=== PATIENT | male | born 1940 | race Caucasian/White ===

== ENCOUNTER 2023-07-04 14:16 | Emergency (ER) | payer OTHER, SELFPAY ==
[2023-07-04 14:18] VITALS: BP 163/82
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
[2023-07-04 15:04] VITALS: BMI 25.9
[2023-07-04 15:32] LABS: % Basophils 0.7 % (0-2); % Eosinophils 2.1 % (0-6); % Immature Granulocytes 0.4 % (0-0.5); % Lymphocytes 12.2 % (20.5-51.1); % Neutrophils 74.6 % (42.2-75.2); Absolute Basophils 0.1 10^3/uL (0-0.2); Absolute Eosinophils 0.2 10^3/uL (0-0.7); Absolute Lymphocytes 1.1 10^3/uL (1.2-3.4); Absolute Monocytes 0.9 10^3/uL (0.1-0.6); Absolute Neutrophils 6.9 10^3/uL (1.4-6.5); Hematocrit 36.8 % (39.0-52.0); Hemoglobin 12.6 g/dL (13.0-18.0); Mean Corp Hgb Conc. 34.2 g/dL (33.0-37.0); Mean Corpuscular Hgb 30.7 pg (27.0-31.0); Mean Corpuscular Volume 89.5 fL (80.0-94.0); Mean Platelet Volume 9.9 fL (7.4-10.4); Nucleated Red Blood Cells % 0 % (-); Platelet Count 273 10^3/uL (130-400); Red Blood Cell Count 4.11 10^6/uL (4.70-6.10); Red Cell Dist. Width 14.8 % (11.5-14.5); White Blood Cell Count 9.2 10^3/uL (4.8-10.8)
[2023-07-04 15:39] LABS: ALT (SGPT) < 10 U/L (0-50); AST (SGOT) 28 U/L (17-59); Alkaline Phosphatase 100 U/L (38-126); Blood Urea Nitrogen 39 mg/dl (9-20); Calcium 9.6 mg/dl (8.4-10.2); Carbon Dioxide 28 mmol/L (22-30); Chloride 103 mmol/L (98-107); Estimated Creatinine Clearance 39 ml/min; Glucose 122 mg/dl (70-99); Potassium 4.2 mmol/L (3.5-5.1); Sodium 134 mmol/L (135-145); Total Protein 6.8 g/dl (6.3-8.2); eGFR 45.91
[2023-07-04] MEDS: ANCEF 5 IV (16:50)
[2023-07-04 17:14] VITALS: BP 155/81
== END 2023-07-04 17:15 | disposition home or self-care (01) ==
LOC: EMR 14:16
PROVIDERS: Physician Assistant Medical; EMERGENCY PHYSICIAN Student in an Organized Health Care Education/Training Program; FAMILY PHYSICIAN Family Medicine
DX: S81.801A Unspecified open wound, right lower leg, initial encounter (principal); S81.802A Unspecified open wound, left lower leg, initial encounter; X58.XXXA Exposure to other specified factors, initial encounter; I48.91 Unspecified atrial fibrillation; I11.0 Hypertensive heart disease with heart failure; I50.9 Heart failure, unspecified
CPT/HCPCS: 99284; 96374; 73590; 80053; 85025

== ENCOUNTER → 2023-07-05 08:40 | Outpatient (REF) | payer OTHER, SELFPAY | LOC: WOUND 08:40 | PROVIDERS: ATTENDING PHYSICIAN Surgery; FAMILY PHYSICIAN Family Medicine | DX: I87.313 Chronic venous hypertension (idiopathic) with ulcer of bilateral lower extremity (principal); L97.311 Non-pressure chronic ulcer of right ankle limited to breakdown of skin; L97.821 Non-pressure chronic ulcer of other part of left lower leg limited to breakdown of skin; I87.2 Venous insufficiency (chronic) (peripheral); I73.9 Peripheral vascular disease, unspecified; I50.32 Chronic diastolic (congestive) heart failure; N18.32 Chronic kidney disease, stage 3b; I35.0 Nonrheumatic aortic (valve) stenosis; Z95.2 Presence of prosthetic heart valve | CPT/HCPCS: 97597; 97598; 99204 ==

== ENCOUNTER 2023-07-08 09:45 | Emergency (ER) | payer OTHER, SELFPAY ==
[2023-07-08 09:52] VITALS: BP 144/74
--- NOTE | 2023-07-08 10:33 | ED.GENMED ---
History of Present Illness
General
Chief Complaint: Skin Problem
Source: patient and family (Daughter)
Time Seen by Provider: 07/08/23 10:12
Travel History
Have you had any contact with someone who has COVID-19?: No
Do you have any symptoms of coronavirus? Fever > 100 degrees, chills, cough, shortness of breath, sore throat, loss of taste or smell, muscle aches, or headache?: No
History of Present Illness
History of Present Illness:
82-year-old male returns ongoing bilateral leg pain. Seen earlier in the week for same. Saw wound care this week also. On doxycycline 100 mg twice daily. Leg pain is moderate worse in the right leg but stable. No fever or chills. However no
improvement in the feel the redness and swelling to the right leg has progressed.
Past History
Past History
ED Past Medical History: Arrthythmia, CAD, Cancer, CHF, COPD, GERD, HTN, Hypercholesterolemia and Valvular disease
ED Past Surgical History: Cardiac, Orthopedic and Urological
Patient has exhibited threatening behavior?: No
Social History
Tobacco: Non-smoker
Alcohol: None
Drug: None
Personal:
Living: with family
Employment: Retired
Family History
Family History: Other (Noncontributory)
Review of Systems
Review of Systems
All Other Systems: Not applicable
Constitutional: Denies fever or chills
Respiratory: Reports no symptoms
Cardiac: Reports no symptoms
Phy Exam
Physical Exam
Physical Exam:
GENERAL: Alert and oriented in no apparent distress
EYE: Orbits normal.
NECK: Supple
CARDIAC: Regular rate and rhythm with mild midsystolic murmur
LUNGS: Clear breath sounds,normal
ABDOMEN: Soft, without focal tenderness or distention
NEUROLOGICAL: Alert and oriented , grossly non-focal
SKIN: Warm and dry, superficial skin breakdown to the right greater than left leg with surrounding erythema. Some drainage.
MUSCULOSKELETAL: Swelling to the lower leg right greater than left. Minimal on the left. Good distal pulses
PSYCH: Normal and appropriate interaction.
Course
Orders/Labs/Results
Orders:
Orders
07/08/23 10:24
US Periph Venous LOWER Ext [place] Urgent
Comment:
Reason For Exam: swelling/pain
07/08/23 10:25
IV Insert/Care/Rem.- Treatment PRN
07/08/23 11:30
Basic Metabolic Panel Urgent
Complete Blood Count/With Diff Urgent
07/08/23 13:44
CeFAZolin 1 GRAM [Ancef] 1 gram in 5 ml IV NOW
Abnormal Lab Results
07/08/23
11:30
RBC 4.32 L 10^6/uL
(4.70-6.10)
Hgb 12.9 L g/dL
(13.0-18.0)
Hct 37.9 L %
(39.0-52.0)
RDW 14.6 H %
(11.5-14.5)
Absolute Neuts (auto) 7.6 H 10^3/uL
(1.4-6.5)
Absolute Lymphs (auto) 1.0 L 10^3/uL
(1.2-3.4)
Absolute Monos (auto) 0.7 H 10^3/uL
(0.1-0.6)
Neutrophils % 80.0 H %
(42.2-75.2)
Lymphocytes % 10.3 L %
(20.5-51.1)
BUN 37 H mg/dl
(9-20)
Creatinine 1.5 H mg/dL
(0.7-1.3)
Glucose 142 H mg/dl
(70-99)
07/08/23 11:30
07/08/23 11:30
Vital Signs
Initial and Last Documented VS:
Initial Vital Signs
Temp Pulse Resp BP Pulse Ox
97.9 F 80 17 144/74 99
07/08/23 09:52 07/08/23 09:52 07/08/23 09:52 07/08/23 09:52 07/08/23 09:52
Last Documented Vital Signs
Temp Pulse Resp BP Pulse Ox
97.9 F 80 17 144/74 99
07/08/23 09:52 07/08/23 09:52 07/08/23 09:52 07/08/23 09:52 07/08/23 09:52
MDM/Problems Addressed
Differential Diagnosis Includes:
Progressive cellulitis versus DVT. Clinically not heart failure. Workup in progress
*Radiology
Radiology exam reviewed: radiology read reviewed (Negative ultrasound)
*Pulse Oximetry
Patient hypoxic: no
*Critical Care Note
Total Time (30-74mins, 75-104mins- exclusive of procedures): Not Applicable
Data Reviewed
Review of Other/Old Records Reveals: Labs and Records
Update Note
Update Note:
Stable labs. Discussed inpatient versus outpatient management. Clinically very reasonable to treat as an outpatient adding a second antibiotic. However inpatient was offered. Patient is not clinically septic or in any distress. This is very
localized. Some of this may not be even cellulitis but local inflammatory response. We will add Keflex to follow-up
ED Attending Note
-
Portions of this chart may have been created with voice recognition software.� Occasional wrong word or��sound alike� substitutions may have occurred due to the inherent limitations of voice recognition software.
Discharge Plan
Departure
Patient Disposition: Home (Routine Discharge)
Date of Disposition: 07/08/23
Time of Disposition: 13:38
Patient with high blood pressure during this ER visit?: Yes
Discharge Problem:
Bilateral leg wounds, Local cellulitis, Chronic renal insufficiency
Instructions: Wound Care (DC), Cellulitis (Skin Infection), Adult (DC)
Prescriptions:
New
cephalexin 500 mg capsule
500 mg PO TID 7 Days Qty: 21 0RF
No Action
simvastatin 10 MG tablet
10 mg PO HS
acetaminophen [Tylenol Arthritis Pain] 650 MG tablet extended release
650 mg PO DAILY
tamsulosin 0.4 MG capsule
0.4 mg PO Q48H
aspirin 81 mg Tablet,Delayed Release (Dr/Ec)
81 mg PO DAILY
cholecalciferol (vitamin D3) 50 mcg (2,000 unit) Capsule
50 mcg PO HS
duloxetine 30 mg Capsule,Delayed Release(Dr/Ec)
30 mg PO DAILY
torsemide 10 mg tablet
10 mg PO DAILY
gabapentin 400 mg Capsule
400 mg PO BID
nifedipine 30 mg Tablet Extended Release
30 mg PO DAILY 30 Days Qty: 30 1RF
doxycycline monohydrate 100 mg Tablet
100 mg PO BID
Patient Comments:
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
ferrous sulfate 325 mg (65 mg iron) Tablet
325 mg PO Q48H@1700
allopurinol 300 mg Tablet
300 mg PO QPM
Referrals:
Hamilton Leblanc Jr., DO [Family Provider] - Follow up in 2-3 days
Activity Restrictions/Additional Instructions:
Continue doxycycline start Keflex
Take a probiotic as discussed
Get wound rechecked this at the wound care center however if you have any concern that is becoming more progressive increased swelling increased drainage, fever chills or any other concerning symptoms please return immediately
Really try to keep the legs elevated
Interventions
Interventions:
*Risk Screen - Suicide Last Done: 07/08/23 09:53
*General Assessment Last Done: 07/08/23 09:53
*Neglect/Abuse Screening Last Done: 07/08/23 09:53
*ED COVID-19 Vaccine History Last Done: 07/08/23 09:53
ED-Skin Assessment Last Done: 07/08/23 12:23
Discharge Date and Time
Print Language: KENYAN
[2023-07-08 11:31] VITALS: BMI 25.4
[2023-07-08 11:43] LABS: % Basophils 0.7 % (0-2); % Immature Granulocytes 0.4 % (0-0.5); % Lymphocytes 10.3 % (20.5-51.1); % Monocytes 7.6 % (1.7-9.3); Absolute Basophils 0.1 10^3/uL (0-0.2); Absolute Eosinophils 0.1 10^3/uL (0-0.7); Absolute Monocytes 0.7 10^3/uL (0.1-0.6); Absolute Neutrophils 7.6 10^3/uL (1.4-6.5); Hematocrit 37.9 % (39.0-52.0); Hemoglobin 12.9 g/dL (13.0-18.0); Mean Corpuscular Hgb 29.9 pg (27.0-31.0); Mean Corpuscular Volume 87.7 fL (80.0-94.0); Mean Platelet Volume 9.5 fL (7.4-10.4); Nucleated Red Blood Cells % 0 % (-); Platelet Count 274 10^3/uL (130-400); Red Blood Cell Count 4.32 10^6/uL (4.70-6.10); Red Cell Dist. Width 14.6 % (11.5-14.5); White Blood Cell Count 9.4 10^3/uL (4.8-10.8)
[2023-07-08 12:05] LABS: Blood Urea Nitrogen 37 mg/dl (9-20); Calcium 9.7 mg/dl (8.4-10.2); Carbon Dioxide 24 mmol/L (22-30); Chloride 107 mmol/L (98-107); Estimated Creatinine Clearance 38 ml/min; Glucose 142 mg/dl (70-99); Sodium 137 mmol/L (135-145); eGFR 45.91
[2023-07-08 12:49] LABS: Potassium 4.2 mmol/L (3.5-5.1)
[2023-07-08] MEDS: ANCEF 5 IV (14:07)
[2023-07-08 14:39] VITALS: BP 150/72
== END 2023-07-08 14:40 | disposition home or self-care (01) ==
LOC: EMR 09:45
PROVIDERS: EMERGENCY PHYSICIAN Emergency Medicine; FAMILY PHYSICIAN Family Medicine
DX: L03.116 Cellulitis of left lower limb (principal); L03.115 Cellulitis of right lower limb; M79.604 Pain in right leg; M79.605 Pain in left leg; I13.0 Hypertensive heart and chronic kidney disease with heart failure and stage 1 through stage 4 chronic kidney disease, or unspecified chronic kidney disease; N18.9 Chronic kidney disease, unspecified; I50.9 Heart failure, unspecified; E78.00 Pure hypercholesterolemia, unspecified; K21.9 Gastro-esophageal reflux disease without esophagitis; J44.9 Chronic obstructive pulmonary disease, unspecified; I25.10 Atherosclerotic heart disease of native coronary artery without angina pectoris; I38 Endocarditis, valve unspecified; Z85.9 Personal history of malignant neoplasm, unspecified; Z79.82 Long term (current) use of aspirin; Z88.8 Allergy status to other drugs, medicaments and biological substances
CPT/HCPCS: 99284; 96374; 80048; 85025; 93970

== ENCOUNTER → 2023-07-12 09:41 | Outpatient (REF) | payer OTHER, SELFPAY | LOC: WOUND 09:41 | PROVIDERS: ATTENDING PHYSICIAN Surgery; FAMILY PHYSICIAN Family Medicine | DX: I87.313 Chronic venous hypertension (idiopathic) with ulcer of bilateral lower extremity (principal); L97.828 Non-pressure chronic ulcer of other part of left lower leg with other specified severity; L97.311 Non-pressure chronic ulcer of right ankle limited to breakdown of skin; I87.2 Venous insufficiency (chronic) (peripheral); I73.9 Peripheral vascular disease, unspecified; I50.32 Chronic diastolic (congestive) heart failure; N18.32 Chronic kidney disease, stage 3b; I35.0 Nonrheumatic aortic (valve) stenosis; I13.0 Hypertensive heart and chronic kidney disease with heart failure and stage 1 through stage 4 chronic kidney disease, or unspecified chronic kidney disease; Z95.2 Presence of prosthetic heart valve | CPT/HCPCS: 11042; 97597; 97598 ==

== ENCOUNTER → 2023-07-20 08:30 | Outpatient (REF) | payer OTHER, SELFPAY | LOC: WOUND 08:30 | PROVIDERS: ATTENDING PHYSICIAN Surgery; FAMILY PHYSICIAN Family Medicine | DX: I87.313 Chronic venous hypertension (idiopathic) with ulcer of bilateral lower extremity (principal); L97.828 Non-pressure chronic ulcer of other part of left lower leg with other specified severity; L97.311 Non-pressure chronic ulcer of right ankle limited to breakdown of skin; I87.2 Venous insufficiency (chronic) (peripheral); I73.9 Peripheral vascular disease, unspecified; I50.32 Chronic diastolic (congestive) heart failure; N18.32 Chronic kidney disease, stage 3b; I35.0 Nonrheumatic aortic (valve) stenosis; Z95.2 Presence of prosthetic heart valve | CPT/HCPCS: 99213 ==

== ENCOUNTER → 2023-07-27 08:29 | Outpatient (REF) | payer OTHER, SELFPAY | LOC: WOUND 08:29 | PROVIDERS: ATTENDING PHYSICIAN Surgery; FAMILY PHYSICIAN Family Medicine | DX: I87.313 Chronic venous hypertension (idiopathic) with ulcer of bilateral lower extremity (principal); L97.828 Non-pressure chronic ulcer of other part of left lower leg with other specified severity; L97.311 Non-pressure chronic ulcer of right ankle limited to breakdown of skin; I87.2 Venous insufficiency (chronic) (peripheral); I73.9 Peripheral vascular disease, unspecified; I50.32 Chronic diastolic (congestive) heart failure; N18.32 Chronic kidney disease, stage 3b; I35.0 Nonrheumatic aortic (valve) stenosis; Z95.0 Presence of cardiac pacemaker | CPT/HCPCS: 97597; 97598 ==

== ENCOUNTER → 2023-08-09 09:43 | Outpatient (REF) | payer OTHER, SELFPAY | LOC: WOUND 09:43 | PROVIDERS: ATTENDING PHYSICIAN Surgery; FAMILY PHYSICIAN Family Medicine | DX: I87.313 Chronic venous hypertension (idiopathic) with ulcer of bilateral lower extremity (principal); L97.828 Non-pressure chronic ulcer of other part of left lower leg with other specified severity; L97.311 Non-pressure chronic ulcer of right ankle limited to breakdown of skin; I87.2 Venous insufficiency (chronic) (peripheral); I73.9 Peripheral vascular disease, unspecified; I50.32 Chronic diastolic (congestive) heart failure; N18.32 Chronic kidney disease, stage 3b; I35.0 Nonrheumatic aortic (valve) stenosis; Z95.2 Presence of prosthetic heart valve | CPT/HCPCS: 97597; 97598 ==

== ENCOUNTER → 2023-08-23 08:37 | Outpatient (REF) | payer OTHER, SELFPAY | LOC: WOUND 08:37 | PROVIDERS: ATTENDING PHYSICIAN Surgery; FAMILY PHYSICIAN Family Medicine | DX: I87.313 Chronic venous hypertension (idiopathic) with ulcer of bilateral lower extremity (principal); L97.312 Non-pressure chronic ulcer of right ankle with fat layer exposed; L97.828 Non-pressure chronic ulcer of other part of left lower leg with other specified severity; I87.2 Venous insufficiency (chronic) (peripheral); I73.9 Peripheral vascular disease, unspecified; I50.32 Chronic diastolic (congestive) heart failure; N18.32 Chronic kidney disease, stage 3b; I35.0 Nonrheumatic aortic (valve) stenosis; Z95.2 Presence of prosthetic heart valve | CPT/HCPCS: 11042; 11045 ==

== ENCOUNTER → 2023-08-27 06:54 | Outpatient (REF) | payer OTHER, SELFPAY ==
[2023-08-27 09:00] LABS: % Basophils 0.7 % (0-2); % Eosinophils 1.6 % (0-6); % Immature Granulocytes 0.4 % (0-0.5); % Monocytes 8.4 % (1.7-9.3); % Neutrophils 73.9 % (42.2-75.2); Absolute Basophils 0.1 10^3/uL (0-0.2); Absolute Eosinophils 0.1 10^3/uL (0-0.7); Absolute Lymphocytes 1.1 10^3/uL (1.2-3.4); Absolute Monocytes 0.6 10^3/uL (0.1-0.6); Absolute Neutrophils 5.5 10^3/uL (1.4-6.5); Hematocrit 38.8 % (39.0-52.0); Hemoglobin 13.1 g/dL (13.0-18.0); Mean Corp Hgb Conc. 33.8 g/dL (33.0-37.0); Mean Corpuscular Hgb 30.9 pg (27.0-31.0); Mean Corpuscular Volume 91.5 fL (80.0-94.0); Mean Platelet Volume 10.9 fL (7.4-10.4); Nucleated Red Blood Cells % 0 % (-); Platelet Count 235 10^3/uL (130-400); Red Blood Cell Count 4.24 10^6/uL (4.70-6.10); Red Cell Dist. Width 16.7 % (11.5-14.5); White Blood Cell Count 7.4 10^3/uL (4.8-10.8)
[2023-08-27 09:44] LABS: ALT (SGPT) < 10 U/L (0-50); AST (SGOT) 32 U/L (17-59); Albumin 4.2 g/dl (3.5-5.0); Alkaline Phosphatase 104 U/L (38-126); Blood Urea Nitrogen 45 mg/dl (9-20); Calcium 9.9 mg/dl (8.4-10.2); Carbon Dioxide 23 mmol/L (22-30); Chloride 107 mmol/L (98-107); Glucose 129 mg/dl (70-99); HDL Cholesterol 63 mg/dl; LDL Cholesterol, Calculated 75 mg/dl; Sodium 141 mmol/L (135-145); Total Cholesterol 158 mg/dl (50-199); Total Protein 7.1 g/dl (6.3-8.2); Triglyceride 100 mg/dl (10-149); Uric Acid 5.2 mg/dl (3.5-8.5); Very Low Density Lipoprotein 20 mg/dl (0-30); eGFR 42.22
[2023-08-27 10:16] LABS: Glycohemoglobin (HgbA1c) 6.5 % (4.0-5.6)
== END ==
LOC: REG 06:54
PROVIDERS: ATTENDING PHYSICIAN Family Medicine
DX: N18.32 Chronic kidney disease, stage 3b (principal); R73.01 Impaired fasting glucose; Z86.2 Personal history of diseases of the blood and blood-forming organs and certain disorders involving the immune mechanism; Z87.39 Personal history of other diseases of the musculoskeletal system and connective tissue
CPT/HCPCS: 36415; 80053; 80061; 83036; 84550; 85025

== ENCOUNTER → 2023-09-04 12:31 | Outpatient (REF) | payer OTHER, SELFPAY | LOC: RAD 12:31 | PROVIDERS: ATTENDING PHYSICIAN Surgery; FAMILY PHYSICIAN Family Medicine | DX: I87.313 Chronic venous hypertension (idiopathic) with ulcer of bilateral lower extremity (principal); I87.2 Venous insufficiency (chronic) (peripheral); I73.9 Peripheral vascular disease, unspecified | CPT/HCPCS: 93922; 93925; 93970 ==

== ENCOUNTER → 2023-09-06 08:32 | Outpatient (REF) | payer OTHER, SELFPAY | LOC: WOUND 08:32 | PROVIDERS: ATTENDING PHYSICIAN Surgery; FAMILY PHYSICIAN Family Medicine | DX: I87.313 Chronic venous hypertension (idiopathic) with ulcer of bilateral lower extremity (principal); L97.312 Non-pressure chronic ulcer of right ankle with fat layer exposed; L97.828 Non-pressure chronic ulcer of other part of left lower leg with other specified severity; I87.2 Venous insufficiency (chronic) (peripheral); I73.9 Peripheral vascular disease, unspecified | CPT/HCPCS: 11042; 11045 ==

== ENCOUNTER → 2023-09-20 08:29 | Outpatient (REF) | payer OTHER, SELFPAY | LOC: WOUND 08:29 | PROVIDERS: ATTENDING PHYSICIAN Surgery | DX: I87.313 Chronic venous hypertension (idiopathic) with ulcer of bilateral lower extremity (principal); L97.312 Non-pressure chronic ulcer of right ankle with fat layer exposed; L97.828 Non-pressure chronic ulcer of other part of left lower leg with other specified severity; I87.2 Venous insufficiency (chronic) (peripheral); I73.9 Peripheral vascular disease, unspecified; I50.32 Chronic diastolic (congestive) heart failure; N18.32 Chronic kidney disease, stage 3b; I35.0 Nonrheumatic aortic (valve) stenosis; Z95.2 Presence of prosthetic heart valve | CPT/HCPCS: 97597; 97598 ==

== ENCOUNTER → 2023-10-04 08:26 | Outpatient (REF) | payer OTHER, SELFPAY | LOC: WOUND 08:26 | PROVIDERS: ATTENDING PHYSICIAN Surgery; FAMILY PHYSICIAN Family Medicine | DX: S81.812A Laceration without foreign body, left lower leg, initial encounter (principal); I87.313 Chronic venous hypertension (idiopathic) with ulcer of bilateral lower extremity; L97.312 Non-pressure chronic ulcer of right ankle with fat layer exposed; L97.828 Non-pressure chronic ulcer of other part of left lower leg with other specified severity; I73.9 Peripheral vascular disease, unspecified; I50.32 Chronic diastolic (congestive) heart failure; N18.32 Chronic kidney disease, stage 3b; I87.2 Venous insufficiency (chronic) (peripheral); I35.0 Nonrheumatic aortic (valve) stenosis; Z95.2 Presence of prosthetic heart valve; X58.XXXA Exposure to other specified factors, initial encounter; E11.22 Type 2 diabetes mellitus with diabetic chronic kidney disease | CPT/HCPCS: 97597 ==

== ENCOUNTER → 2023-10-11 08:24 | Outpatient (REF) | payer OTHER, SELFPAY | LOC: WOUND 08:24 | PROVIDERS: ATTENDING PHYSICIAN Surgery; FAMILY PHYSICIAN Family Medicine | DX: I87.313 Chronic venous hypertension (idiopathic) with ulcer of bilateral lower extremity (principal); L97.312 Non-pressure chronic ulcer of right ankle with fat layer exposed; L97.828 Non-pressure chronic ulcer of other part of left lower leg with other specified severity; I87.2 Venous insufficiency (chronic) (peripheral); I73.9 Peripheral vascular disease, unspecified | CPT/HCPCS: 97597 ==

== ENCOUNTER → 2023-10-25 08:32 | Outpatient (REF) | payer OTHER, SELFPAY | LOC: WOUND 08:32 | PROVIDERS: ATTENDING PHYSICIAN Surgery; FAMILY PHYSICIAN Family Medicine | DX: I87.313 Chronic venous hypertension (idiopathic) with ulcer of bilateral lower extremity (principal); L97.312 Non-pressure chronic ulcer of right ankle with fat layer exposed; L97.828 Non-pressure chronic ulcer of other part of left lower leg with other specified severity; I87.2 Venous insufficiency (chronic) (peripheral); I73.9 Peripheral vascular disease, unspecified; I50.32 Chronic diastolic (congestive) heart failure; N18.32 Chronic kidney disease, stage 3b; Z95.2 Presence of prosthetic heart valve | CPT/HCPCS: 99213 ==

== ENCOUNTER 2023-10-27 09:49 | Inpatient (IN) | payer OTHER, SELFPAY ==
[2023-10-27] VITALS (10 sets, daily range): BP systolic 123–155; BP diastolic 61–79; BMI 25.6; BMI 25.8
[2023-10-27 06:47] LABS: % Basophils 0.3 % (0-2); % Eosinophils 0.3 % (0-6); % Immature Granulocytes 0.5 % (0-0.5); % Lymphocytes 6.2 % (20.5-51.1); % Monocytes 9.3 % (1.7-9.3); % Neutrophils 83.4 % (42.2-75.2); Absolute Basophils 0.1 10^3/uL (0-0.2); Absolute Eosinophils 0.1 10^3/uL (0-0.7); Absolute Immature Granulocytes 0.1 10^3/uL (0-0.05); Absolute Monocytes 1.5 10^3/uL (0.1-0.6); Absolute Neutrophils 13.1 10^3/uL (1.4-6.5); Hematocrit 37.9 % (39.0-52.0); Hemoglobin 12.9 g/dL (13.0-18.0); Mean Corpuscular Hgb 30.4 pg (27.0-31.0); Mean Corpuscular Volume 89.4 fL (80.0-94.0); Mean Platelet Volume 10.2 fL (7.4-10.4); Nucleated Red Blood Cells % 0 % (-); Platelet Count 211 10^3/uL (130-400); Red Blood Cell Count 4.24 10^6/uL (4.70-6.10); Red Cell Dist. Width 15.8 % (11.5-14.5); White Blood Cell Count 15.7 10^3/uL (4.8-10.8)
[2023-10-27] MEDS: OFIRMEV 100 IV (07:04)
[2023-10-27 07:05] LABS: ALT (SGPT) < 10 U/L (0-50); AST (SGOT) 30 U/L (17-59); Albumin 4.3 g/dl (3.5-5.0); Alkaline Phosphatase 104 U/L (38-126); Blood Urea Nitrogen 32 mg/dl (9-20); Calcium 9.8 mg/dl (8.4-10.2); Carbon Dioxide 22 mmol/L (22-30); Chloride 101 mmol/L (98-107); Estimated Creatinine Clearance 52 ml/min; Glucose 167 mg/dl (70-99); Potassium 4.3 mmol/L (3.5-5.1); Sodium 134 mmol/L (135-145); Total Bilirubin 1.3 mg/dl (0.2-1.3); eGFR > 60.00
[2023-10-27 07:28] LABS: NT-proBNP 2650 pg/ml; Troponin I 0.177 ng/ml
--- NOTE | 2023-10-27 07:31 | ED.GENMED ---
Addendum entered and electronically signed by Ish Quevedo MD 10/27/23 08:46:
Repeat EKG atrial fibrillation rate of 64 left bundle branch block left axis deviation. No acute changes
Addendum entered and electronically signed by Ish Quevedo MD 10/27/23 08:37:
Patient with some increased chest pain. Remains clinically stable. Appears uncomfortable but nontoxic. Will do repeat cardiac testing now. Doubt pulmonary emboli and somewhat reluctant to do a CT scan with dye given his renal issues although GFR
is okay at this time. Will do a D-dimer as a screen. Discussed with patient and family. Await admission physician
Original Note:
History of Present Illness
General
Chief Complaint: Chest Pain
Source: patient
Exam Limitations: none
Time Seen by Provider: 10/27/23 06:28
History of Present Illness
History of Present Illness:
Patient with chest pain some increased shortness of breath for 1-1/2 days. 4 to 5 pound weight gain this week although weight has improved. Pain is spasm-like. Becomes sudden and severe then waxes and wanes. Nonexertional. No significant
radiation. No diaphoresis. No history of similar pain. Pain has been since 2 or 3 in the morning
Past History
Past History
ED Past Medical History: Arrthythmia, CAD, Cancer, CHF, COPD, GERD, HTN, Hypercholesterolemia and Valvular disease
ED Past Surgical History: Cardiac, Orthopedic and Urological
Patient has exhibited threatening behavior?: No
Social History
Tobacco: Non-smoker
Alcohol: None
Drug: None
Personal:
Living: with family
Employment: Retired
Family History
Family History: Other (Noncontributory)
Review of Systems
Review of Systems
All Other Systems: Not applicable
Constitutional: Denies fever
Respiratory: Reports cough
ABD/GI: Reports no symptoms
Phy Exam
Physical Exam
Physical Exam:
GENERAL: Alert and oriented in no apparent distress. Frequently has episodes of what appears to be spasm-like pain where he clutches his chest but then eases off very quickly. Remains warm and dry perfusing well and stable during these episodes.
EYE: Orbits normal.
NECK: Supple, no thyroid palpable.
ENT: Pharynx without erythema
CARDIAC: Regular rate and rhythm.
LUNGS: Mild rhonchi in both bases left greater than right
ABDOMEN: Soft, without focal tenderness or distention
NEUROLOGICAL: Alert and oriented , grossly non-focal
SKIN: Warm and dry, no rash or lesion, no discoloration, skin intact.
MUSCULOSKELETAL: No edema,no deformity.Good color
PSYCH: Normal and appropriate interaction.
Scores
Heart Score for Chest Pain Patients
STEMI patient?: No
History: Slightly or Non-Suspicious
ECG: Nonspecific Repolarization
Age: >/= 65 years
Risk Factors: >/= 3 Risk Factors or History of CAD
Troponin: >1 - <3 x Normal Limit
Heart Score for Chest Pain Patients: 6
Heart Score Risk: 20.3% MACE over next 6 weeks
Course
Orders/Labs/Results
Orders:
Orders
10/27/23 06:27
Electrocardiogram (*1) Urgent
Reason for Study: Chest Pain
Cardiac Monitoring- Treatment ONCE
EKG- Treatment ONCE
IV Insert/Care/Rem.- Treatment PRN
Pulse Ox/spot Check [RESP] Urgent
Quantity: 1
Special Instructions: ON ROOM AIR
10/27/23 06:40
Complete Blood Count/With Diff Urgent
Comprehensive Metabolic Panel Urgent
NT-proBNP Urgent
Troponin I Urgent
10/27/23 06:53
Acetaminophen 1000MG/100Ml [Ofirmev] 1,000 mg in 100 ml IV ONCE
Acetaminophen IV Indication:: ED Narcotic Naive Pt-ONCE
10/27/23 06:54
CXR Port [CR Chest Portable - 1 View] Urgent
Comment:
Reason For Exam: cp
Reason Study Needs to be Portable: Unable to Transport
10/27/23 08:13
Furosemide [Lasix] 40 mg IV NOW STA
Abnormal Lab Results
10/27/23
06:40
WBC 15.7 H 10^3/uL
(4.8-10.8)
RBC 4.24 L 10^6/uL
(4.70-6.10)
Hgb 12.9 L g/dL
(13.0-18.0)
Hct 37.9 L %
(39.0-52.0)
RDW 15.8 H %
(11.5-14.5)
Abs Immat Gran (auto) 0.1 H 10^3/uL
(0-0.05)
Absolute Neuts (auto) 13.1 H 10^3/uL
(1.4-6.5)
Absolute Lymphs (auto) 1.0 L 10^3/uL
(1.2-3.4)
Absolute Monos (auto) 1.5 H 10^3/uL
(0.1-0.6)
Neutrophils % 83.4 H %
(42.2-75.2)
Lymphocytes % 6.2 L %
(20.5-51.1)
Sodium 134 L mmol/L
(135-145)
BUN 32 H mg/dl
(9-20)
Glucose 167 H mg/dl
(70-99)
Troponin I 0.177 H* ng/ml
10/27/23 06:40
10/27/23 06:40
Vital Signs
Initial and Last Documented VS:
Initial Vital Signs
Pulse Ox
91
10/27/23 06:31
Last Documented Vital Signs
Temp Pulse Resp BP Pulse Ox
99.1 F 75 25 129/67 93
10/27/23 06:32 10/27/23 07:15 10/27/23 07:15 10/27/23 07:00 10/27/23 07:15
MDM/Problems Addressed
Differential Diagnosis Includes:
Atypical chest pain. Rhonchi left base greater than right base. CHF versus pneumonia versus pleurisy. Doubt pulmonary emboli. Workup in progress.
*Radiology
Radiology exam reviewed: preliminary read by ED provider (Questionable infiltrate left base versus CHF)
*Pulse Oximetry
Patient hypoxic: no
*Critical Care Note
Total Time (30-74mins, 75-104mins- exclusive of procedures): Not Applicable
Data Reviewed
Review of Other/Old Records Reveals: Labs, Records, Radiology Studies, Testing and Discharge Summary
Update Note
Update Note:
Patient's chest pain is atypical. He does have an indeterminant troponin but always runs indeterminant. Doubt primary cardiac issue. X-ray shows pneumonia versus mild CHF. We do lose the left diaphragm on x-ray. With a 15,000 count this may be
a left lower lobe pneumonia. Warrants inpatient management.
X-ray read as CHF. Patient lists hydrochlorothiazide as an allergy causing itching however he has been on Lasix before and can take it. He was given it in November 2022 without issues.
ED Attending Note
-
Portions of this chart may have been created with voice recognition software.� Occasional wrong word or��sound alike� substitutions may have occurred due to the inherent limitations of voice recognition software.
Discharge Plan
Departure
Patient Disposition: Admit
Date of Disposition: 10/27/23
Time of Disposition: 07:32
Presentation/result/management discussed w/ accepting MD/DO: Hospitalist
Discharge Problem:
Atypical chest pain, Possible left lower lobe pneumonia, Chronic indeterminate troponin
Prescriptions:
No Action
simvastatin 10 MG tablet
10 mg PO HS
acetaminophen [Tylenol Arthritis Pain] 650 MG tablet extended release
650 mg PO DAILY
tamsulosin 0.4 MG capsule
0.4 mg PO Q48H
aspirin 81 mg Tablet,Delayed Release (Dr/Ec)
81 mg PO DAILY
cholecalciferol (vitamin D3) 50 mcg (2,000 unit) Capsule
50 mcg PO HS
duloxetine 30 mg Capsule,Delayed Release(Dr/Ec)
30 mg PO DAILY
torsemide 10 mg tablet
10 mg PO DAILY
gabapentin 400 mg Capsule
400 mg PO BID
nifedipine 30 mg Tablet Extended Release
30 mg PO DAILY 30 Days Qty: 30 1RF
ferrous sulfate 325 mg (65 mg iron) Tablet
325 mg PO Q48H@1700
allopurinol 300 mg Tablet
300 mg PO QPM
Referrals:
Hamilton Leblanc Jr., DO [Family Provider] -
Interventions
Interventions:
*Risk Screen - Suicide Last Done: 10/27/23 06:32
*General Assessment Last Done: 10/27/23 06:32
*Neglect/Abuse Screening Last Done: 10/27/23 06:32
ED- Fall Risk Assessment Last Done: 10/27/23 07:20
*ED COVID-19 Vaccine History Last Done: 10/27/23 06:32
ED- Cardiac Assessment Last Done: 10/27/23 07:20
Discharge Date and Time
Print Language: FRENCH
[2023-10-27] MEDS: MORPHINE SULFATE 2 MG IV (08:39)
[2023-10-27] MEDS: LASIX 40 MG IV (08:40)
[2023-10-27 09:24] LABS: D-Dimer 1.14 ug/mlFEU (0.00-0.50)
[2023-10-27 09:40] LABS: Troponin I 0.192 ng/ml
[2023-10-27 10:10] LABS: COVID-19 Antigen Negative (Negative)
[2023-10-27] MEDS: ROCEPHIN 1000 MG IV (13:03)
[2023-10-27] MEDS: STERILE WATER FOR INJECTION 10 ML IV (13:03)
[2023-10-27] MEDS: ZITHROMAX INFUSION 250 IV (13:08)
[2023-10-27] MEDS: FLOMAX 0.4 MG PO (13:14)
--- NOTE | 2023-10-27 14:23 | HPS.HSE ---
Family Physician
-
Family Physician: Hamilton Leblanc Jr.
Chief Complaint
-
Chest pain
History of Present Illness
83 yo male w/ CAD, Cancer, CHF, COPD, GERD, HTN, Hypercholesterolemia and Valvular disease now presents for some chest pain, sharp, spasm-like pain and worsening shortness of breath for the last 1 to 1-1/2 days. Does acknowledge 4 to 5 pound weight
gain although has improved. Weight is at 81 kg, approximately at dry weight. White count 15.7, sodium 134, creatinine 1.1, troponin 0.12 although chronically elevated. proBNP 2650. CT imaging with small trace left and right pleural effusions,
cardiomegaly. No PE on CT angio.
Medical History
Past Medical History
Past Medical History: Reports Other
Additional Past Medical History:
DM2
Essential hypertension
Paroxysmal atrial fibrillation
Chronic heart failure preserved EF
Aortic stenosis
Prostate cancer
DANNY
DVT/PE 2015
GBS/neuropathy
History of GI bleed
CKD 3B
Past Surgical History: Reports Other
Additional Past Surgical History:
TAVR 2020
Watchman device 2020
Social History
Tobacco: Former Smoker
Alcohol: None
Drug: None
Living: With Family
Family History
Family History: Not pertinent
Allergies / Home Medications
Allergies reflects when Allergies were last updated in [employer].
Home Medications with original date entered in [employer]
Allergy/Medication List:
Allergies
Allergy/AdvReac Type Severity Reaction Status Date / Time
hydrochlorothiazide Allergy Itching Verified 11/12/22 17:49
Home Medications
nitroglycerin 0.4 mg sublingual tablet 0.4 mg sublingual [id number] PRN chest pain ##0 06/27/20
simvastatin 10 mg tablet 10 mg PO HS High cholesterol 10/12/20
acetaminophen 650 mg tablet,extended release (Tylenol Arthritis Pain) 650 mg PO BIDPRN PRN mild pain 01/21/21
tamsulosin 0.4 mg capsule 0.4 mg PO Q48H Urinary issue 03/23/21
aspirin 81 mg tablet,delayed release 81 mg PO DAILY Blood Clot Prevention/Tx 11/03/22
cholecalciferol (vitamin D3) 50 mcg (2,000 unit) capsule 50 mcg PO HS Supplement 11/03/22
colchicine (gout) 0.6 mg tablet 0.6 mg PO HS Gout 11/03/22
duloxetine 30 mg capsule,delayed release 30 mg PO DAILY Mental Health/Anxiety 11/03/22
omeprazole 20 mg capsule,delayed release 20 mg PO Q48H Gastrointestinal Issue 11/03/22
torsemide 10 mg tablet 10 mg PO DAILY Fluid retention/Swelling 11/03/22
gabapentin 400 mg capsule 400 mg PO DAILY Pain 11/12/22
nifedipine 30 mg tablet,extended release 30 mg PO DAILY 30 days #30 tabs 11/15/22
sulfamethoxazole 800 mg-trimethoprim 160 mg tablet 1 tab PO BID 11/19/22
Review of Systems
-
History Source: Patient
A 12 point ROS was completed and negative except as noted: Yes
Physical Exam
Vital Signs
Vital Signs
Temp Pulse Resp BP Pulse Ox
97.8 F 70 22 153/76 97
10/27/23 11:55 10/27/23 11:55 10/27/23 11:55 10/27/23 11:55 10/27/23 11:55
Physical Exam
General: Well Developed and Well Nourished
HEENT: NormoCephalic
Respiratory: Clear and Rales (mild B/l rales at the bases )
Cardiac: S1/S2 and Regular Rhythm
GI: Soft and Non Tender
Musculoskeletal: No Clubbing
Skin: Warm and Dry
Neuro: Awake, Alert, Oriented and AO x 3
Hematologic/Lymphatic: No Lymphadenopathy
Laboratory Results
-
10/27/23 06:40
10/27/23 06:40
Laboratory Results
Total Bilirubin 1.3 mg/dl (0.2-1.3) 10/27/23 06:40
AST 30 U/L (17-59) 10/27/23 06:40
ALT < 10 U/L (0-50) 10/27/23 06:40
Alkaline Phosphatase 104 U/L (38-126) 10/27/23 06:40
Troponin I 0.192 ng/ml H* 10/27/23 08:38
Data Reviewed
-
Diagnostic Radiology: Image Personally Visualized and interpreted and Report Reviewed by me
CT Scan: Image Personally Visualized and interpreted and Report Reviewed by me
Lab Data: Labs Reviewed by me
Impression/Plan
-
IMPRESSION:
CAD, Cancer, CHF, COPD, GERD, HTN, Hypercholesterolemia and Valvular disease now presents for spasm like atypical chest pain, mild shortness of breath.
PLAN:
#Atypical Chest pain
#Dyspnea
-possibly pneumonia v musculoskeletal pain
-at dry weight
-trend trops
-PE series negative
-empiric abx
-f/u cultures
�Pain control
� Procalcitonin
#SIRS
-most likely infectious etiology with pneumonia although continue to monitor
#Nonischemic myocardial injury
� Chronic
Continue to monitor
� Had clean cath in June 2022
� If trops continue to trend up, consult cardiology
#Gout
� Continue allopurinol
#Paroxysmal atrial fibrillation
-Status post Watchman device
� On aspirin, no anticoagulation
#Chronic HFpEF
� Continue torsemide
� Appears to be dry weight
#Essential hypertension
� Continue nifedipine, torsemide
[2023-10-27 16:43] LABS: Procalcitonin 0.58 ng/ml (0.0-0.25)
[2023-10-27] MEDS: FEOSOL 325 MG PO (17:53)
[2023-10-27] MEDS: HEPARIN 5000 UNITS SC ×2 (17:53→23:21)
[2023-10-27] MEDS: ZYLOPRIM 300 MG PO (17:54)
[2023-10-27] MEDS: DILAUDID 0.25 MG IV (19:14)
[2023-10-27] MEDS: NEURONTIN 400 MG PO (19:41)
[2023-10-27] MEDS: TYLENOL 650 MG PO (19:41)
[2023-10-27] MEDS: VITAMIN D3 (cholecalciferol) 50 MCG PO (21:16)
[2023-10-27] MEDS: LIPITOR 10 MG PO (21:16)
[2023-10-28] VITALS (23 sets, daily range): BP systolic 64–147; BP diastolic 41–87; PULSE 2–84; BMI 25.5; BMI 25.9
[2023-10-28 07:55] LABS: Hemoglobin 12.7 g/dL (13.0-18.0); Mean Corp Hgb Conc. 33.4 g/dL (33.0-37.0); Mean Corpuscular Hgb 31.1 pg (27.0-31.0); Mean Corpuscular Volume 92.9 fL (80.0-94.0); Mean Platelet Volume 10.6 fL (7.4-10.4); Platelet Count 182 10^3/uL (130-400); Red Blood Cell Count 4.09 10^6/uL (4.70-6.10); Red Cell Dist. Width 15.6 % (11.5-14.5); White Blood Cell Count 15.1 10^3/uL (4.8-10.8)
[2023-10-28 08:19] LABS: Troponin I 0.213 ng/ml
[2023-10-28 08:23] LABS: ALT (SGPT) < 10 U/L (0-50); AST (SGOT) 26 U/L (17-59); Alkaline Phosphatase 93 U/L (38-126); Blood Urea Nitrogen 43 mg/dl (9-20); Calcium 9.7 mg/dl (8.4-10.2); Carbon Dioxide 25 mmol/L (22-30); Chloride 98 mmol/L (98-107); Estimated Creatinine Clearance 33 ml/min; Glucose 114 mg/dl (70-99); Magnesium 1.9 mg/dl (1.6-2.3); Phosphorus 4.4 mg/dl (2.5-4.5); Potassium 4.6 mmol/L (3.5-5.1); Sodium 133 mmol/L (135-145); Total Bilirubin 1.3 mg/dl (0.2-1.3); Total Protein 6.4 g/dl (6.3-8.2); eGFR 39.26
[2023-10-28] MEDS: HEPARIN 5000 UNITS SC ×2 (09:18→16:33)
[2023-10-28] MEDS: TYLENOL 650 MG PO ×2 (09:20→20:18)
[2023-10-28] MEDS: PROCARDIA XL (EXTENDED RELEASE) 30 MG PO (09:20)
[2023-10-28] MEDS: ASPIR LOW (ENTERIC COATED) 81 MG PO (09:20)
[2023-10-28] MEDS: DEMADEX 10 MG PO (09:21)
[2023-10-28] MEDS: NEURONTIN 400 MG PO ×2 (09:21→20:18)
[2023-10-28] MEDS: CYMBALTA DELAYED RELEASE 30 MG PO (09:21)
[2023-10-28] MEDS: ROCEPHIN 1000 MG IV (12:05)
[2023-10-28] MEDS: STERILE WATER FOR INJECTION 10 ML IV (12:07)
[2023-10-28] MEDS: ZITHROMAX INFUSION 250 IV (12:07)
[2023-10-28 13:05] LABS: Glucose - Point of Care 175 mg/dl (70-99)
[2023-10-28 13:26] LABS: Hematocrit 38.1 % (39.0-52.0); Hemoglobin 12.7 g/dL (13.0-18.0); Mean Corp Hgb Conc. 33.3 g/dL (33.0-37.0); Mean Corpuscular Hgb 31.5 pg (27.0-31.0); Mean Corpuscular Volume 94.5 fL (80.0-94.0); Mean Platelet Volume 10.1 fL (7.4-10.4); Platelet Count 184 10^3/uL (130-400); Red Blood Cell Count 4.03 10^6/uL (4.70-6.10); Red Cell Dist. Width 15.7 % (11.5-14.5); White Blood Cell Count 16.6 10^3/uL (4.8-10.8)
[2023-10-28 13:38] LABS: INR 1.43; PT 17.2 Sec (11.4-14.6)
[2023-10-28 13:39] LABS: APTT 40.7 Sec (23.4-35.0)
[2023-10-28 13:45] LABS: Lactic Acid 5.5 mmol/L (0.7-2.0)
[2023-10-28 13:52] LABS: ALT (SGPT) 10 U/L (0-50); AST (SGOT) 26 U/L (17-59); Albumin 3.9 g/dl (3.5-5.0); Alkaline Phosphatase 84 U/L (38-126); Blood Urea Nitrogen 45 mg/dl (9-20); Calcium 9.5 mg/dl (8.4-10.2); Carbon Dioxide 19 mmol/L (22-30); Chloride 100 mmol/L (98-107); Estimated Creatinine Clearance 32 ml/min; Glucose 211 mg/dl (70-99); Potassium 4.2 mmol/L (3.5-5.1); Sodium 135 mmol/L (135-145); Total Bilirubin 0.9 mg/dl (0.2-1.3); Total Protein 6.4 g/dl (6.3-8.2); eGFR 36.66
[2023-10-28 13:54] LABS: NT-proBNP 5540 pg/ml; Troponin I 0.212 ng/ml
--- NOTE | 2023-10-28 14:21 | W.PN.HOSP.TC ---
Addendum entered and electronically signed by Chad Mclean MD 10/28/23 15:49:
less likely PE as patient had PE study neg yesterday; with renal function and risk of PRISCILLA - will order US dopplers. F/u ECHO. If trops trend up - will need to consult cards.
Patient improving on fluid, pressors - will trial off bipap.
Original Note:
Today's Communication/Plan
-
upgrade to imu
echo
norepinephrine - wean as tolerated
trial bipap
await bmp
trend lactate
f/u cultures
hold antihypertensives/diuretics
GOC on going
Assessment / Plan
Assessment / Plan
Physical Exam
General: Well Developed and Well Nourished in AM; diaphoretic with accessory muscle use in the afternoon
HEENT: NormoCephalic
Respiratory: Clear and Rales (mild B/l rales at the bases )
Cardiac: S1/S2 and Regular Rhythm
GI: Soft and Non Tender
Musculoskeletal: No Clubbing
Skin: Warm and Dry
Neuro: Awake, Alert, Oriented and AO x 3
Hematologic/Lymphatic: No Lymphadenopathy
#Atypical Chest pain
#Dyspnea
-possibly pneumonia v musculoskeletal pain; +/- Acute CHF during rapid
-was on abx and broadened due to worsening hemodynamics
-trops stable
-proBNP upon admission at appx baseline with mild fluid on ct
-PE series negative
-f/u cultures
�Pain control
� Procalcitonin mildly elevated
-BiPAP for accessory muscle use 10/27 - can be weaned off if doing better
-F/u ECHO
-Hold on diuretics due to shock
#Shock, Septic +/- cardiogenic
-f/u cultures
-broaden abx
-maintain map >65
-trend lactate
-Started on norepinephrine s/p LR boluses
-GOC convo
#Nonischemic myocardial injury
� Chronic
Continue to monitor
� Had clean cath in June 2022
� If trops continue to trend up, consult cardiology
-ECHO
#Gout
� Continue allopurinol
#Paroxysmal atrial fibrillation
-Status post Watchman device
� On aspirin, no anticoagulation
#Chronic HFpEF
� holding diuretics due to shock
� Appears to be dry weight
#Essential hypertension
� holding nifedipine, torsemide due to shock
Total time spent on today's encounter was 50 minutes which included time spent in counseling the patient/family regarding diagnosis and treatment plan as listed above, goals of care, and symptom management. Case was discussed with nursing staff,
specialists, and care coordinators/case management. All labs and imaging personally reviewed by me. Remainder the time spent in detailed review of previous records, lab data, imaging, and other medical provider documentation.
Anticipated Discharge: > 48 hours
Subjective/Interval History
-
Date of Service: October 28, 2023
appeared much improved this morning - symptoms resolved; rapid this afternoon diaphoretic hypotensive.
Objective Data
-
Labs:
Laboratory Results
10/28/23 10/28/23 10/28/23
07:23 12:56 13:15
WBC 15.1 H 16.6 H
Hgb 12.7 L 12.7 L
Hct 38.0 L 38.1 L
Plt Count 182 184
PT 17.2 H
INR 1.43
APTT 40.7 H
HCO3 Cancelled
Sodium 133 L 135
Potassium 4.6 4.2
Chloride 98 100
Carbon Dioxide 25 19 L
BUN 43 H 45 H
Creatinine 1.7 H 1.8 H
Glucose 114 H 211 H
Calcium 9.7 9.5
Total Bilirubin 1.3 0.9
AST 26 26
ALT < 10 10
Alkaline Phosphatase 93 84
Vital Signs:
Vital Signs
Temp Pulse Resp BP Pulse Ox
97.6 F 76 20 126/61 96
10/28/23 13:55 10/28/23 11:00 10/28/23 11:00 10/28/23 11:00 10/28/23 11:00
I&O
10/27/23 10/28/23 10/29/23
06:59 06:59 06:59
Intake Total 720 / 720
Balance 720 / 720
Review of Systems
-
History Source: Patient
All other systems: Not reviewed unless documented
Data Reviewed
-
Total Time Spent with Patient (in minutes): 42
CT Scan: Image personally visualized and interpreted and Report Reviewed by me
Labs: Labs Reviewed by me
[2023-10-28] MEDS: LR 1000 IV ×2 (14:25→14:49)
[2023-10-28] MEDS: LEVOPHED 250 IV (14:26)
--- NOTE | 2023-10-28 14:28 | PHA.VAN.IN ---
Assessment
- Assessment
Renal Function: Appears elevated from baseline, Unknown baseline
Maximum Temperature: 99.1
Minimum Temperature: 97.6
Concomitant Antimicrobials: Piperacillin-tazobactam
Plan
- Plan
Initial / Loading Dose: Vanc 2000mg--25mg/kg--administration pending
Maintenance Regimen: Dose by level
Monitoring: Randaom 10/28 AM
Pharmacokinetics Vancomycin I
- -
Patient Age: 83
Patient Sex: Male
Vancomycin Day #: 1
Indication: Pulmonary/Respiratory
Requesting Provider: Vinay
Height / Weight:
Height 5 ft 10 in
Actual Weight 80.768 kg
IBW in k
Adjusted BW in k.1
Pertinent Past Medical History: CKDIIIb
- Vital Signs / Lab Results
Temp Pulse Resp BP Pulse Ox
97.6 F 73 18 69/52 99
10/28/23 13:55 10/28/23 14:05 10/28/23 14:05 10/28/23 14:05 10/28/23 14:05
Lab Results - Hematology
10/27/23 10/28/23 10/28/23
06:40 07:23 13:15
WBC 15.7 H 15.1 H 16.6 H
Lab Results - Chemistry
10/27/23 10/28/23 10/28/23
06:40 07:23 13:15
BUN 32 H 43 H 45 H
Creatinine 1.1 1.7 H 1.8 H
Estimated Creat Clear 52 33 32
Albumin 4.3 4.0 3.9
10/28/23
13:15
Lactic Acid 5.5 H*
Microbiology Results
10/28/23 06:21 Legionella Urinary Antigen - Final
Urine Negative for Legionella pneumophila Serogroup 1 antigen.
A negative result does not rule out the possiblity of
Legionella infection due to other serogroups or species of
Legionella. Clinical correlation is recommended.
Streptococcus pneumoniae Antigen (M - Final
Negative for Streptococcus pneumoniae antigen.
A negative result does not exclude infection with
Streptococcus pneumoniae. Clinical correlation is
recommended.
[2023-10-28] MEDS: ZOSYN 50 IV ×2 (14:43→20:18)
--- NOTE | 2023-10-28 14:45 | PTCARENOTE ---
1255 Pt presented with complaints of sweating after finishing his lunch. Pt appeared diaphoretic, SOB with 02 saturation of 96% on RA. Dr. Mclean made aware and evaluated patient. B/P 64/41 Hr in 60-80 range. EKG done. Pt continued with
hypotension and decreasing O2 saturation. Pt placed on non rebreather. Rapid Response called. Please see rapid response record documentation.
--- NOTE | 2023-10-28 14:52 | RR ---
1320 A Rapid Response was called on this patient, please see Rapid Response form.
--- NOTE | 2023-10-28 15:06 | PTCARENOTE ---
1500 Pt was transported to higher level of care by ICU after Rapid Response. Report given to NUCLEAR [employer]ICAL TECH.
[2023-10-28] MEDS: VANCOCIN 540 MG IV (15:09)
[2023-10-28 15:20] LABS: Venous Blood Gas B.E. -8.1 mmol/L (-4 to +4); Venous Blood Gas HCO3 16.9 mmol/L (22-27); Venous Blood Gas O2 Sat % 99.7 %; Venous Blood Gas pCO2 32 mmHg (35-48); Venous Blood Gas pH 7.33 (7.32-7.43); Venous Blood Gas pO2 196 mmHg (30-50)
--- NOTE | 2023-10-28 16:14 | CHAP ---
Nurse requested a visit for Mr. Junior and his daughters. Emotional and spiritual support provided - we offered prayers from the [employer]. Contacted [facility] sprayer hand line at daughters' request, however, Fr. Darby replied that they are
unavailable today. It is still possible a sprayer hand visit can be arranged during the week. Prayer blanket also provided.
[2023-10-28] MEDS: ZYLOPRIM 300 MG PO (16:35)
[2023-10-28 17:07] LABS: Lactic Acid 3.6 mmol/L (0.7-2.0)
--- NOTE | 2023-10-28 17:16 | PTCARENOTE ---
Received pt s/p rapid response where he was found to be diaphoretic, hypotensive, s/o sob and on nrb mask with labored breathing. Fluid bolus was infusing upon arrival to unit with attending at bedside stating pt was DNR/DNI. Pt placed on bipap
per attending 15/ 15l O2 Pt was brought to new room as IMU level of care, kept saying 'I'm done, just stop' during transfer. Family aware. Pt incontinent of urine prior to transfer, complete chg bath given and condom cath applied in attempt to
obtain urine sample as ordered. Pt remained hypotensive after fluid bolus, levo started as ordered and additional liter of fluid given as ordered. ABX changed and labs sent as charted. Pt now weaned to nasal cannula, levo off. No urine since
transfer, bladder scan under 100ml. Pt resting comfortably in bed without complaint. Family updated t/o afternoon.
[2023-10-28] MEDS: VITAMIN D3 (cholecalciferol) 50 MCG PO (21:02)
[2023-10-28] MEDS: LIPITOR 10 MG PO (21:02)
[2023-10-28 21:42] LABS: Lactic Acid 1.2 mmol/L (0.7-2.0)
--- NOTE | 2023-10-28 22:48 | PTCARENOTE ---
Troponin resulted 33.5. TREV Ni notified immediately. EKG obtained. Pt. without complaints. Vitals stable. Cardiology consulted. Orders to start heparin gtt.
Pt. AAOx3, resting calmly in bed. NELSON. Afib on tele, HR 60s-70s. BP stable, off pressors. Afebrile. No edema. On 6L NC- will wean as able. Lungs diminished but CTA. + bowel sounds. Poor appetite. Condom cath in place- no urine output. Bladder
scanned for 144ml. Will monitor. R redding venous ulcer dressing c/d/i. Monitoring closely
[2023-10-28] MEDS: HEPARIN 25000 UNITS/250 ML IV (23:02)
--- NOTE | 2023-10-28 23:02 | W.PN.UPDATE ---
Addendum entered and electronically signed by TREV Anderson (Linda) 10/29/23 06:15:
0600a troponin 54.3. Cardiology made aware. Rx patient NPO.
Original Note:
Update Note
Progress Note Update
Patient's 2100 troponin elevated from 0.177>0.192>0.213>0.212---> now 33.5. Patient has no c/o chest pain, VSS - Levophed wean off. Case discussed with cardiology nurse transitional Dr. Nathan. Rx Heparin gtt, bedside Echo in AM, trend troponin at 0600 (no
need to get one prior to 0600 as management will not change).
[2023-10-28 23:10] LABS: Hematocrit 34.8 % (39.0-52.0); Hemoglobin 11.9 g/dL (13.0-18.0); Mean Corp Hgb Conc. 34.2 g/dL (33.0-37.0); Mean Corpuscular Hgb 31.3 pg (27.0-31.0); Mean Corpuscular Volume 91.6 fL (80.0-94.0); Platelet Count 177 10^3/uL (130-400); Red Cell Dist. Width 15.5 % (11.5-14.5); White Blood Cell Count 13.3 10^3/uL (4.8-10.8)
[2023-10-28 23:21] LABS: APTT 37.5 Sec (23.4-35.0)
[2023-10-29] VITALS (11 sets, daily range): BP systolic 113–149; BP diastolic 61–96; BMI 26.6
[2023-10-29] MEDS: ZOSYN 50 IV ×4 (02:03→20:26)
[2023-10-29 05:12] LABS: Urine Albumin Trace (Neg - Trace); Urine Bilirubin Negative (Negative); Urine Character Slightly Cloudy (Clear); Urine Color Yellow; Urine Glucose Negative (Negative); Urine Ketone Negative (Negative); Urine Leukocyte Negative (Negative); Urine Nitrite Negative (Negative); Urine Occult Blood Negative (Negative); Urine Specific Gravity 1.015 (<1.030); Urine Urobilinogen Negative (Neg - 1+)
[2023-10-29 05:18] LABS: Hematocrit 36.7 % (39.0-52.0); Hemoglobin 12.6 g/dL (13.0-18.0); Mean Corp Hgb Conc. 34.3 g/dL (33.0-37.0); Mean Corpuscular Hgb 31.5 pg (27.0-31.0); Mean Corpuscular Volume 91.8 fL (80.0-94.0); Mean Platelet Volume 10.6 fL (7.4-10.4); Platelet Count 170 10^3/uL (130-400); Red Cell Dist. Width 15.3 % (11.5-14.5); White Blood Cell Count 12.8 10^3/uL (4.8-10.8)
[2023-10-29 05:24] LABS: APTT 114.3 Sec (23.4-35.0)
[2023-10-29 05:36] LABS: ALT (SGPT) 22 U/L (0-50); AST (SGOT) 206 U/L (17-59); Albumin 3.9 g/dl (3.5-5.0); Alkaline Phosphatase 90 U/L (38-126); Blood Urea Nitrogen 54 mg/dl (9-20); Calcium 9.3 mg/dl (8.4-10.2); Carbon Dioxide 24 mmol/L (22-30); Chloride 100 mmol/L (98-107); Estimated Creatinine Clearance 30 ml/min; Glucose 118 mg/dl (70-99); Potassium 4.2 mmol/L (3.5-5.1); Sodium 134 mmol/L (135-145); Total Bilirubin 0.9 mg/dl (0.2-1.3); Total Protein 6.6 g/dl (6.3-8.2); eGFR 34.35
[2023-10-29 05:41] LABS: Vancomycin Random 17.2 ug/ml
--- NOTE | 2023-10-29 05:45 | PTCARENOTE ---
troponin 54.3. TREV Ni notified. EKG was obtained. Pt. without complaints at this time. COLORING ROOM MAN ordered NPO in case of cath today.
Weaned to room air overnight, spo2 95%. He voided this morning but condom cath fell off- replaced. UA sent. Bathed with CHG. R LE wound dressing changed. PTT = 114.3. Heparin gtt titrated down to 900units.
--- NOTE | 2023-10-29 07:27 | CON.CAR ---
Addendum entered and electronically signed by Joselo Gipson MD 10/29/23 11:09:
I saw and examined the patient.
The BAND CUTTING MACHINE OPERATOR or PA's note was reviewed and I agree with the note.
Comment: General: Well developed, well nourished in NAD.
Neck: Supple, no JVD, HJR, carotids +2 B/L, no bruits bilaterally.
Heart: Non displaced PMI, RRR, no murmurs, No S3, S4, no rubs.
Lungs: Scattered rhonchi
Extremities: No clubbing, cyanosis or edema bilaterally.
Neuro: Grossly nonfocal, awake, alert and oriented x3.
Erich has a history of CKD 3B, chronic diastolic CHF, permanent A-fib and not anticoagulated due to presence of Watchman device, TAVR are in 2020, left bundle branch block, nonobstructive CAD on catheterization June 2022, hypertension, prostate
cancer, DVT and pulmonary embolism in 2015. He presents with chest discomfort. Chest discomfort was persistent. He was admitted and troponin is now 54. He denies chest pain at the present time. Of note CT of the chest was negative for PE but
there were trace pleural effusions. He also started on empiric antibiotics for presumed sepsis and hypotension and was briefly on Levophed which has been weaned off.
Will continue on IV heparin we will plan on cardiac catheterization when renal function has improved/stabilized. Nephrology has been consulted. Echocardiogram reveals normal EF surprisingly. May need to consider possible eventual diuresis but
will hold off with renal insufficiency and nephrology has been consulted as well. Discussed with patient and nursing in detail. Okay to telemetry/IVU.
Original Note:
Consultation
Consultation Request
Date/Time Consultation Requested: 10/28/23 at 2248
Date/Time Consultation Performed: 10/29/23 at 0730
Requesting Provider: Dr. López
Performing Provider: Dr. Gipson
Reason for Consultation: Chest painm elevated Troponin
Medical History
-
History of Present Illness:
Patient came to [facility] early Sunday morning with chest pain and is now admitted with shock and cardiology has been consulted for elevated Troponin. Patient says that chest pain started on Sunday when he was walking in his driveway, chest pain was
described as across his shoulders B/L and it was relieved with rest. Chest pain recurred later in the day with walking. No resting pain. Chest pain then felt more substernal on Sunday and then was more of a centrally located back pain early Sunday
morning. Pain was worse with deep breath, no real positional component. The pain started to become more intense and was happening at rest along with SOB and cough so he came to [facility] early Sunday morning. Initial Troponin was 0.177 and ECG showed
chronic LBBB. CT was negative for PE, but there were small left and trace right pleural effusions. Patient was given Lasix 40 mg IV x1 in the ER. Patient was also started on empiric antibiotics and admitted with SIRS. Hypotension worsened and
Levophed was started, no additional Lasix was given. Lactic acid was elevated. Antibiotics were broadened. Troponin continued to rise was was up to 54 this morning. Heparin gtt started overnight. Patient denies chest pain, even with deep breath,
this AM. Hypotension has improved and Levophed stopped.
PMH:
CKD 3b
Chronic HFpEF
Permanent atrial fibrillation
Not chronically anticoagulated due to presence of watchman device
s/p Watchman due to recurrent radiation proctitis bleeding 02/01/21
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
cLBBB
Mild to moderate nonobstructive CAD by cath 07/07/22
HTN
Hx� prostate CA
Hx GBS after back surgery 2015
Hx DVT and B/L PE 2015
Past Medical History
Past Medical History: Other (in HPI)
Past Surgical History: Cardiac (TAVR 11/2020, Watchman 01/2021) and Orthopedic
Social History
Tobacco: Former Smoker
Alcohol: Occasional
Drug: None
Personal:
Employment: Retired
Family History
Family History: CAD
Allergies / Home Medications
Allergy/AdvReac Type Severity Reaction Status Date / Time
hydrochlorothiazide Allergy Itching Verified 10/27/23 08:02
�Medication �Instructions �Recorded �Confirmed �Type
simvastatin 10 mg tablet 10 mg PO HS High cholesterol 10/12/20 10/27/23 History
acetaminophen 650 mg 650 mg PO Q8HPRN PRN mild pain 01/21/21 10/27/23 History
tablet,extended release (Tylenol
Arthritis Pain)
tamsulosin 0.4 mg capsule 0.4 mg PO Q48H Urinary issue 03/23/21 10/27/23 History
aspirin 81 mg tablet,delayed 81 mg PO DAILY Blood Clot 11/03/22 10/27/23 History
release Prevention/Tx
cholecalciferol (vitamin D3) 50 50 mcg PO HS Supplement 11/03/22 10/27/23 History
mcg (2,000 unit) capsule
duloxetine 30 mg capsule,delayed 30 mg PO DAILY Mental 11/03/22 10/27/23 History
release Health/Anxiety
torsemide 10 mg tablet 10 mg PO DAILY Fluid 11/03/22 10/27/23 History
retention/Swelling
gabapentin 400 mg capsule 400 mg PO BID Pain 11/12/22 10/27/23 History
nifedipine 30 mg tablet,extended 30 mg PO DAILY Blood pressure 30 11/24/22 10/27/23 Rx
release days #30 tabs
allopurinol 300 mg tablet 300 mg PO QPM Gout 07/08/23 10/27/23 History
ferrous sulfate 325 mg (65 mg 325 mg PO Q48H@1700 Supplement 07/08/23 10/27/23 History
iron) tablet
Review of Systems
-
History Source: Patient
All other systems: Negative unless noted
Physical Exam
Vital Signs
Temp Pulse Resp BP Pulse Ox
97.7 F 66 17 119/61 96
10/29/23 03:22 10/29/23 06:00 10/29/23 06:00 10/29/23 06:00 10/29/23 05:00
GEN: Sitting in bed in NAD, AAO to person, place and situation
HEENT: EOMI, MMM
LUNGS: Coarse BS anterolaterally without wheeze
CV: Irreg irreg, S1/S2, 1/6 syst LSB, no rubs or gallops
EXT: Trace B/L LE edema. RLE dressing surrounding ankle is CDI without tenderness or malodor. No clubbing or cyanosis B/L
NEURO: Gross non-focal
SKIN: No rash, warm, dry, pink
Lab Results
10/29/23 05:00
10/29/23 05:00
Troponin I 54.300 ng/ml H* D 10/29/23 05:00
Lgz-X-Txipqlkivlj Pept 5540 pg/ml 10/28/23 13:15
Impression / Plan
-
CP: Dr. Marika Benson
Cardiology: Dr. Ish Nathan
Impression:
Chest pain
Elevated Troponin, 54.3
Admitted with hypotension and shock, possibly septic and/or cardiogenic
Elevated Troponin
PRISCILLA on CKD 3b
Hyponatremia
Chronic HFpEF
Permanent atrial fibrillation
Not chronically anticoagulated due to presence of watchman device
s/p Watchman due to recurrent radiation proctitis bleeding 02/01/21
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
cLBBB
Mild to moderate nonobstructive CAD by cath 07/07/22
HTN
Hx� prostate CA
Hx GBS after back surgery 2015
Hx DVT and B/L PE 2015
Lexiscan mibi 04/04/19: fixed inferolateral defect consistent with an infarct
Lexiscan mibi 06/07/20: No ischemia
Cardiac cath 07/07/22: Mild to moderate nonobstructive CAD, �50 to 60% proximal RCA, IFR negative at 0.95.
Echo 10/12/20: EF 60-65%, mild conc LVH, mild MS mean gradient 5 mmHg and mild MR, severe with peak/mean 69/44 mmHg and DEDRA 0.8 cm sq with mild aortic regurgitation
CARRILLO March 2021: well-seated watchman without leak or thrombus.
Echo 05/15/22: EF 50-55%, stage II diastolic dysfunction, mild to mod MR, TAVR well seated with peak/mean 21/12 mmHg and no aortic regurgitation
Echo 07/03/22: EF 55%, mild MS and mild t mod MR, s/p TAVR well seated with peak/mean 18/10 mmHg, no AR
Echo 10/29/23: preliminary report, preserved EF 55%, no WMA, no evidence of pericardial effusion
Plan:
-Patient came to [facility] early Sunday morning with chest pain and is now admitted with shock and cardiology has been consulted for elevated Troponin. Patient says that chest pain started on Sunday when he was walking in his driveway, chest pain
was described as across his shoulders B/L and it was relieved with rest. Chest pain recurred later in the day with walking. No resting pain. Chest pain then felt more substernal on Sunday and then was more of a centrally located back pain early
Sunday morning. Pain was worse with deep breath, no real positional component. The pain started to become more intense and was happening at rest along with SOB and cough so he came to [facility] early Sunday. Initial Troponin was 0.177 and ECG
showed chronic LBBB. CT was negative for PE, but there were small left and trace right pleural effusions. Patient was given Lasix 40 mg IV x1 in the ER. Patient was also started on empiric antibiotics and admitted with SIRS. Hypotension worsened and
Levophed was started, no additional Lasix was given. Lactic acid was elevated. Antibiotics were broadened. Troponin continued to rise was was up to 54 this morning. Heparin gtt started overnight. Patient denies chest pain, even with deep breath,
this AM. Hypotension has improved and Levophed stopped.
-Urgent bedside echo, I called echo dept this morning to make patient a 1st case. Preliminary report noted above, EF is preserved and no WMA.
-Check next Troponin later today.
-Patient is pain free on Heparin gtt.
-Chest pain has symptomatically improved with treatment of possible PNA. Hypotension and lactic acid levels have also improved.
-No pericardial effusion on echo. No rub on exam.
-Patient had cardiac cath 07/07/22 in the setting of NSTEMI, peak Troponin 2.2 at that time, and was found to have an iFR negative 50-60% prox RCA lesion at that time.
-Troponin elevation could be NSTEMI related to known 50-60% RCA or possibly myopericarditis with pain on deep inspiration.
-Weight is up 7 lbs. Patient received 2 L IVFs this admission. pro-BNP 5540 which is moderately elevated for him. Patient was given Lasix 40 mg IV x1 10/27/23 and then a single dose of his outpatient dose of torsemide 10 mg daily on 10/28/23, but
currently no diuretics ordered. Briefly required Levophed from
-He has permanent Afib and HRs controlled.
-Patient is not chronically anticoagulated due to Watchman in place. Watchman was placed due to recurrent radiation proctitis
-LBBB is chronic on ECG reviewed by me.
-Talked with patient's daughter, Sruthi, for 13:06 this AM and outlined Troponin elevation, preliminary echo results and plans for Heparin gtt and repeat labs.
--- NOTE | 2023-10-29 07:44 | PTCARENOTE ---
Received patient from night coordinator. patient is being seen by Traci Reece, from cardiology, provider reviewing troponin levels and plan for urgent Echocardiogram. speaking to patient about potential need to cardiac cath. Patient is AAOx3, slightly
hard of hearing, he is 95% on room air, normotensive, denies any pain or pressure. Patient is in afib on monitor. He is currently NPO. condom cath for urine. 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 Patient is on heparin
gtt, hand off at 900units/hr. PTT due at 1130. Will review orders, call [facility] within reach.
[2023-10-29] MEDS: ASPIR LOW (ENTERIC COATED) 81 MG PO (07:49)
[2023-10-29] MEDS: TYLENOL 650 MG PO ×2 (07:49→20:26)
[2023-10-29] MEDS: CYMBALTA DELAYED RELEASE 30 MG PO (07:49)
[2023-10-29] MEDS: NEURONTIN 400 MG PO ×2 (07:50→20:26)
--- NOTE | 2023-10-29 08:15 | PHA.VAN.FU ---
Vancomycin Assessment / Plan
- Assessment
Renal Function: SCR Decreasing
WBC's are: Trending Down
In the past 24 hrs, patient has been: Afebrile
Concomitant Antimicrobials: Piperacillin/Tazobactam
- Assessment - Therapeutic Drug Monitoring
Random Level: 10/28=17.2
- Dosing Plan
Dosing by Level: Hold off on dosing today
- Monitoring Plan
Random Level: 10/29 with am labs
- Follow Up
Pharmacy will continue to follow.
Vancomycin Follow UP
- -
Patient Age: 83
Patient Sex: Male
Vancomycin Day #: 2
Indication: Pulmonary/Respiratory
Requesting Provider: Vinay
Height / Weight:
Height 5 ft 10 in
Actual Weight 84 kg
IBW in k
Adjusted BW in k.1
Pertinent Past Medical History: CKDIIIb
- Vital Signs / Lab Results
Temp Pulse Resp BP Pulse Ox
97.7 F 72 21 119/61 92
10/29/23 07:05 10/29/23 07:00 10/29/23 07:00 10/29/23 06:00 10/29/23 08:02
Lab Results - Hematology
10/27/23 10/28/23 10/28/23
06:40 07:23 13:15
WBC 15.7 H 15.1 H 16.6 H
10/28/23 10/29/23
23:00 05:00
WBC 13.3 H 12.8 H
Lab Results - Chemistry
10/27/23 10/28/23 10/28/23
06:40 07:23 13:15
BUN 32 H 43 H 45 H
Creatinine 1.1 1.7 H 1.8 H
Estimated Creat Clear 52 33 32
Albumin 4.3 4.0 3.9
08/19/24
05:00
BUN 54 H
Creatinine 1.9 H
Estimated Creat Clear 30
Albumin 3.9
10/28/23 10/28/23 10/28/23
13:15 14:30 15:53
Lactic Acid 5.5 H* Cancelled Cancelled
10/28/23 10/28/23 10/28/23
16:46 20:30 21:02
Lactic Acid 3.6 H Cancelled Cancelled
10/28/23
21:25
Lactic Acid 1.2
Lab Results - Urine
10/29/23
05:02
Urine Nitrite (Reflex) Negative
Leukocyte Esterase Rfl Negative
Microbiology Results
10/28/23 06:21 Legionella Urinary Antigen - Final
Urine Negative for Legionella pneumophila Serogroup 1 antigen.
A negative result does not rule out the possiblity of
Legionella infection due to other serogroups or species of
Legionella. Clinical correlation is recommended.
Streptococcus pneumoniae Antigen (M - Final
Negative for Streptococcus pneumoniae antigen.
A negative result does not exclude infection with
Streptococcus pneumoniae. Clinical correlation is
recommended.
Therapeutic Drug Monitoring
Random Vancomycin 17.2 ug/ml 10/29/23 05:00
--- NOTE | 2023-10-29 08:36 | W.PN.HOSP.TC ---
Today's Communication/Plan
-
Continue with IV heparin. Follow echo report from today.
Continue with empirical antibiotics pending culture data.
Consult nephrology.
Assessment / Plan
Assessment / Plan
# Acute chest pain with significant troponin elevation. Clinical concern for non-ST elevation MS. Chronic left bundle branch block noted. Currently chest pain-free. Patient on aspirin. Heparin was added which I would continue. Continue to
trend troponins which have not peaked. Urgent echo this morning done-follow the report. Consider ischemia eval . Await cardiology input.
CT chest negative for PE .
Cath in June 2022 showed nonobstructive CAD and 50 to 60% proximal RCA, IFR negative at 0.95 ;there was elevated LV end-diastolic pressures then.
# Acute on chronic CHF - pt did have symptom of dyspnea but today asymptomatic without SOB. patient known to have normal EF. Check echocardiogram. Currently without shortness of breath or orthopnea. Elevated BNP and small bilateral pleural
effusions noted. Patient had issues with hypotension-hold diuretics for now [patient normally on torsemide at home]. Follow wt. Doubt clinically pneumonia - cxr not supportive and pt without prodrome of infection. Chest CT also shows no evidence
of infiltrates.
#Acute hypotension with shock physiology -unclear etiology- Patient needed brief vasopressors which are off now. Continue with empirical antibiotics pending culture data.Check an echocardiogram.
# Leukocytosis -Afebrile .? sec to infection vs reactive . Elevated procal noted but no clear foci of infection . CW abx pending cx data. UA negative. Chest CT without any infiltrates and consolidation.
# PRISCILLA on CKD 3 -patient received IV contrast dye for CT chest and also might need cardiac catheterization. No obstructive symptoms. Check bladder scan. Follow I&O's. Consult nephrology.
#Gout
� Continue allopurinol
#Paroxysmal atrial fibrillation-currently in rate controlled A-fib.
-Status post Watchman device
� On aspirin, no anticoagulation
#Essential hypertension
� holding nifedipine
Discussed with ACID TESTER
Dispo-ICU
Total Critical Care Time__35___ minutes. I was immediately available to the patient and staff. I personally examined, reviewed labs, diagnostic images/reports, interpretations, treatment plans, discussed patient care with other providers and
family or caregivers (if patient is unable to make decisions), entered orders as appropriate and documented the medical record.
Anticipated Discharge: > 48 hours
Subjective/Interval History
-
Date of Service: October 29, 2023
Patient this morning without any chest pain.
Lying flat without shortness of breath.
Denies any nausea vomiting.
No fever or chills.
Patient gives me history of chest pain going back to Sunday of last week. He had intermittent episodes of chest pain culminating into intense severe continuous central chest pain on Sunday evening into the night. Due to relentless pain all
night he presented on Sunday morning.
During the week he denies having any fever or chills. Does not think he was infected. Respiratory cough today which is mostly dry.
Denied having any nausea vomiting or diarrhea.
Denies any dysuria frequency of urine. Denies any prostatism symptoms.
Objective Data
-
Labs:
Laboratory Results
10/28/23 10/29/23 10/29/23
23:00 05:00 11:30
WBC 13.3 H 12.8 H
Hgb 11.9 L 12.6 L
Hct 34.8 L 36.7 L
Plt Count 177 170
APTT 37.5 H 114.3 H Pending
Sodium 134 L
Potassium 4.2
Chloride 100
Carbon Dioxide 24
BUN 54 H
Creatinine 1.9 H
Glucose 118 H
Calcium 9.3
Total Bilirubin 0.9
AST 206 H
ALT 22
Alkaline Phosphatase 90
Vital Signs:
Vital Signs
Temp Pulse Resp BP Pulse Ox
97.7 F 72 21 119/61 92
10/29/23 07:05 10/29/23 07:00 10/29/23 07:00 10/29/23 06:00 10/29/23 08:02
I&O
10/28/23 10/29/23 10/30/23
06:59 06:59 06:59
Intake Total 720 / 720 2955 / 2955 /
Output Total 200 / 200
Balance 720 / 720 2755 / 2755
Review of Systems
-
Constitutional: Denies Fever
EENT: Denies Sore Throat
Cardiac: Denies Palpitations
Abdomen/GI: Denies Abdominal Pain
Neuro: Denies Dizzy
Physical Exam
-
General: No Apparent Distress
HEENT: Moist Mucous Membranes
Respiratory: Non Labored Respirations; Negative Wheezes, Rhonchi or Accessory Resp Muscle Use
Cardiac: S1/S2, Irregular Rhythm and Murmur
GI: Soft, Nontender, Nondistended and Normal Bowel Sounds
Neuro: AO x 3
Psych: Calm
Data Reviewed
-
Diagnostic Radiology: Report Reviewed by me (Chest x-ray)
CT Scan: Report Reviewed by me (Chest CT)
Labs: Labs Reviewed by me
--- NOTE | 2023-10-29 09:55 | PTCARENOTE ---
Dr. Gipson in to review patient's Echo results at bedside. Will consider cathing patient later this week. May consider downgrade to IVU
--- NOTE | 2023-10-29 12:21 | WOUNDNOTE ---
R MEDIAL LOWER LEG
--- NOTE | 2023-10-29 12:22 | WOUNDNOTE ---
MONICO RN note: Patient admitted with Atypical chest pain.
See H&P for complete history. Lives with daughter.
PMH: AVR-2020, watchman device- 2021, PE, ex smoker, A fib, CHF, HTN, chest pain and L finger amputation.
Wound Location and type/assessment: Patient admitted with: Healing R lower leg venous ulcer. Patient goes to [facility] and reviewed with patient what Dr. Bird has ordered for wound care and compression, + pp. Patient states he is supposed to have
a vein ablation in a week and then will follow up with [facility]. Heels and sacrum intact.
Appetite: NPO for testing.
Pressure redistribution devices in place:On air mattress, patient turns self. Pillow under calves.
Plan: R leg with silver alginate, abd pad and dre change daily and prn drainage. Dion wrap applied to R leg knee high, asked nurse Neida Myles to remove if ultrasound of leg + for DVT, PVU test pending.
Will confirm orders with hospitalist and updated nurse. Updated care plan and will follow as needed.
Note to case management of equipment requested for discharge: none.
Recommend follow up at wound care center upon discharge.
[2023-10-29 12:48] LABS: APTT 80.1 Sec (23.4-35.0)
--- NOTE | 2023-10-29 13:39 | PTCARENOTE ---
Patient to transfer to IVU. Troponin level coming down, PTT was therapeutic. repeat PTT at 1800.
--- NOTE | 2023-10-29 13:52 | CM ---
CM following re: discharge planning.
Reviewed pt's chart, met with pt and pt's daughter Sruthi at bedside.
Pt is an 83 year old male, admitted with primary dx of Acute chest pain with significant troponin elevation.
Pt reports he lives with daughter Sruthi in a 2SH, 1 step to enter, has 2 supportive children. 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 Pt expressed his desire to return back home at
discharge with daughter support.
PCP: Hamilton Leblanc
Pharmacy: [facility].
D/C plan: home with anticipated no needs. Daughter to transport at discharge.
CM will follow with discharge plan updates as hospitalization progresses
--- NOTE | 2023-10-29 14:29 | PTCARENOTE ---
Patient transferred to IVU on monitor. Report given to MELONY Hendricks.
--- NOTE | 2023-10-29 15:50 | PTCARENOTE ---
Pt transferred from ICU to IVU into room 2241. Pt is awake, alert, and oriented. Hard of hearing. No complaints of pain. Pt remains Afib with HR 70's-80's. BP 133/74 MAP 92. Pulse oximetry 94% on room air. Pt dyspneic at rest. Pt tolerating heart
healthy diet. Pt had bowel movement on bedside commode. Condom cath removed, to void in urinal. Dion wrap on right leg intact. Pt remains on heparin gtt at 9ml/hr. Currently resting comfortably in bed with daughter at bedside and call [facility] within
reach.
--- NOTE | 2023-10-29 15:58 | W.CON.NEPH ---
Consultation
-
Date/Time Consultation Requested: 10/28 9:57AM
Date/Time Consultation Performed: 10/29/23 3:58PM
Requesting Provider: Rodri López
Performing Provider: Saranya Arevalo
Reason for Consultation: PRISCILLA on CKD
Medical History
-
Chief Complaint: PRISCILLA on CKD
History of Present Illness:
Mr. Branham is an 83YOM with PMH of CAD (s/p catheterization in 2022), cancer, CHF, GERD, HTN (nifedipine, torsemide), DLD, TAVR in 2020, Afib (on no AC due to presence of Watchman device), DVT/PE in 2015 who presented for worsening SOB and chest
discomfort on 10/26. He was admitted and trops were trended, now at 54. He also did obtain a CT PE on admission which was negative for PE, but was notable for trace pleural effusions. He was also started on empiric abx due to concern for sepsis. Did
require Levophed initially, but has now been weaned off.
Cr at the time of presentation was 1.1. Over the past two days, his Cr has risen to 1.9. His urine output seems to be picking up with 825cc out today.
Past Medical History
DM2
Essential hypertension
Paroxysmal atrial fibrillation (s/p Watchman device)
Chronic heart failure preserved EF
Aortic stenosis s/p TAVR
Prostate cancer
DANNY
DVT/PE 2015
GBS/neuropathy
History of GI bleed
?CKD
Past Medical History: Other
Past Surgical History: Other (TAVR 2020 Watchman device 2020)
Social History
Tobacco: Former Smoker
Alcohol: None
Drug: None
Living: With Family
Family History
Family History: Not Pertinent
Allergies / Home Medications
Allergy/AdvReac Type Severity Reaction Status Date / Time
hydrochlorothiazide Allergy Itching Verified 10/27/23 08:02
�Medication �Instructions �Recorded �Confirmed �Type
simvastatin 10 mg tablet 10 mg PO HS High cholesterol 10/12/20 10/27/23 History
acetaminophen 650 mg 650 mg PO Q8HPRN PRN mild pain 01/21/21 10/27/23 History
tablet,extended release (Tylenol
Arthritis Pain)
tamsulosin 0.4 mg capsule 0.4 mg PO Q48H Urinary issue 03/23/21 10/27/23 History
aspirin 81 mg tablet,delayed 81 mg PO DAILY Blood Clot 11/03/22 10/27/23 History
release Prevention/Tx
cholecalciferol (vitamin D3) 50 50 mcg PO HS Supplement 11/03/22 10/27/23 History
mcg (2,000 unit) capsule
duloxetine 30 mg capsule,delayed 30 mg PO DAILY Mental 11/03/22 10/27/23 History
release Health/Anxiety
torsemide 10 mg tablet 10 mg PO DAILY Fluid 11/03/22 10/27/23 History
retention/Swelling
gabapentin 400 mg capsule 400 mg PO BID Pain 11/12/22 10/27/23 History
nifedipine 30 mg tablet,extended 30 mg PO DAILY Blood pressure 30 11/24/22 10/27/23 Rx
release days #30 tabs
allopurinol 300 mg tablet 300 mg PO QPM Gout 07/08/23 10/27/23 History
ferrous sulfate 325 mg (65 mg 325 mg PO Q48H@1700 Supplement 07/08/23 10/27/23 History
iron) tablet
Review of Systems
-
History Source: Patient and Family
All other systems: Negative unless noted
Physical Exam
Vital Signs
Vital Signs
Temp Pulse Resp BP Pulse Ox
98.2 F 72 18 133/74 94
10/29/23 11:15 10/29/23 15:21 10/29/23 15:21 10/29/23 14:24 10/29/23 15:44
Lab Results
WBC 12.8 10^3/uL (4.8-10.8) H 10/29/23 05:00
RBC 4.00 10^6/uL (4.70-6.10) L 10/29/23 05:00
Hgb 12.6 g/dL (13.0-18.0) L 10/29/23 05:00
Hct 36.7 % (39.0-52.0) L 10/29/23 05:00
Plt Count 170 10^3/uL (130-400) 10/29/23 05:00
Sodium 134 mmol/L (135-145) L 10/29/23 05:00
Potassium 4.2 mmol/L (3.5-5.1) 10/29/23 05:00
Chloride 100 mmol/L (98-107) 10/29/23 05:00
Carbon Dioxide 24 mmol/L (22-30) 10/29/23 05:00
BUN 54 mg/dl (9-20) H 10/29/23 05:00
Creatinine 1.9 mg/dL (0.7-1.3) H 10/29/23 05:00
eGFR 34.35 10/29/23 05:00
Glucose 118 mg/dl (70-99) H 10/29/23 05:00
Calcium 9.3 mg/dl (8.4-10.2) 10/29/23 05:00
Phosphorus 4.4 mg/dl (2.5-4.5) 10/28/23 07:23
Jgv-X-Nmeraxcpnga Pept 5540 pg/ml 10/28/23 13:15
Albumin 3.9 g/dl (3.5-5.0) 10/29/23 05:00
Physical Exam
General: AOx3, No Distress and Nontoxic
HEENT: PERRL, EOMI, Anicteric, Conjunctivae Clear, Ear/Nose Intact, Hearing Normal, Oropharynx Clear/Moist, Dentition Intact, Facial Symmetry, Neck Supple, Trachea Midline and No JVD
Respiratory: Clear and Crackels (in the bilateral lung bases)
Cardiac: S1/S2, Regular Rate/Rhythm and No Edema
Breast: N/A
Abdomen: Soft, Nontender, Nondistended, Normal Bowel Sounds and No Hepatosplenomegaly
Rectal: Deferred by Provider
Musculoskeletal: No Clubbing, No Cyanosis and No Edema
Skin: No Clubbing, No Cyanosis, Normal Turgor and No Bruising
Neuro: Nonfocal/Grossly Intact
Hematologic/Lymphatic: No Cervical Lymphadenopathy
Psych: Mood/afflect pleasant, Insight/judgement good and Appropriate
Data Reviewed
-
Radiology: Image Personally Visualized and interpreted (bilateral atelectasis)
CT Scan: Report Reviewed by me (1. No CTA evidence for an acute central pulmonary thromboembolism. Significantly limited evaluation of the bilateral segmental and subsegmental pulmonary arteries secondary to respiratory motion artifact and streak
artifact. 2. Cardiomegaly. 3. Small left and trace right pleural effusions.)
Labs: Labs Reviewed by me
Old Records: Reviewed
Assessment/Plan
-
Assessment:
Chest pain with trop elevation
Acute on chronic CHF
Hypotension (previously requiring pressor support)
PRISCILLA on ?CKD
gout
HTN
Plan:
- patient with normal Cr on day of admission so it is unclear if the patient has true CKD
- likely has PRISCILLA in the setting of contrast exposure + ATN (documented hypotension)
- obtain KUS + bladder to r.o post renal disease
- UA bland
- UOP appears to be picking up (continue to trend UOP)
- I am hopeful that we will see improvement of kidney function
- please maintain MAP >65
- continue to trend CR
- continue supportive management as you are
--- NOTE | 2023-10-29 16:29 | PN.CDI ---
CDI
- -
CDI:
Physician Documentation Request
Admit Date: 10/27/23 09:49
Dear Doctor Rene,
Please review the following and provide your response in the progress notes.
Clinical Indicators:
Pt admitted with acute on chronic diastolic CHF
Cardiology consult, ' Lactic acid was elevated...'
Lactic acid levels below/Did get LR IVFs
10/28/23 10/28/23 10/28/23
13:15 16:46 21:25
Lactic Acid 5.5 H* 3.6 H 1.2
Based on the above, could you clarify in the progress notes, the appropriate diagnosis, if significant, that supports the above abnormalities and additional evaluation, monitoring and/or treatment rendered:
Lactic Acidosis
Abnormal lab value
Other
Use of terms such as suspected, likely, concern for, or probable (associated with a specific diagnosis that is being evaluated, monitored, or treated as if it exists) are acceptable and can be coded in the inpatient setting, when documented at the
time of discharge.
Thank you,
Graciela Peterson RN
CDI Specialist
[employer]
Please use your independent medical judgment in providing your response.
--- NOTE | 2023-10-29 16:34 | PN.CDI ---
CDI
- -
CDI:
Physician Documentation Request
Admit Date: 10/27/23 09:49
Dear Doctor Rene,
Please review the following and provide your response in the progress notes.
Clinical Indicators:
Pt admitted with acute on chronic diastolic CHF
There is potentially conflicting documentation regarding the type of afib.
H&P and Progress notes 10/27 & 10/28, ' Paroxysmal atrial fibrillation Status post Watchman device On aspirin, no anticoagulation...'
Cardiology consult, ' permanent A-fib and not anticoagulated due to presence of Watchman device...-He has permanent Afib and HRs controlled....'
If possible, please provide further specificity regarding atrial fibrillation, such as:
Permanent atrial fibrillation - when a decision has been made to accept the presence of AF and there is no further attempt to restore or maintain sinus rhythm
Paroxysmal atrial fibrillation - terminates spontaneously or with intervention within 7 days of onset
Other - please specify
Unable to further specify
Use of terms such as suspected, likely, concern for, or probable (associated with a specific diagnosis that is being evaluated, monitored, or treated as if it exists) are acceptable and can be coded in the inpatient setting, when documented at the
time of discharge.
Thank you,
Graciela Peterson RN
CDI Specialist
[place] [employer]
Please use your independent medical judgment in providing your response.
--- NOTE | 2023-10-29 16:38 | PN.CDI ---
CDI
- -
CDI:
Physician Documentation Request
Admit Date: 10/27/23 09:49
Dear Doctor Rene,
Please review the following and provide your response in the progress notes.
Clinical Indicators:
Pt admitted with acute on chronic diastolic CHF
Patient care note 10/27 @ 1716, ' Received pt s/p rapid response where he was found to be diaphoretic, hypotensive, s/o sob and on nrb mask with labored breathing... Pt placed on bipap per attending 15/ 15l O2 Pt was brought to new room as IMU
level of care...'
Patient care note 10/27 @ 2248,' On 6L NC- will wean as able. Lungs diminished but CTA...'
Progress note 10/27, ' ....General: Well Developed and Well Nourished in AM; diaphoretic with accessory muscle use in the afternoon...Rales (mild B/l rales at the bases )...-BiPAP for accessory muscle use 10/27 ....'
Laboratory Tests
10/28/23
15:03
VBG pH 7.33
VBG pCO2 32 L
Please Clarify which of the following accurately represents the patient's respiratory status:
Acute Hypoxic respiratory failure
Hypoxia-only
Other ( please specify)
Additional information for Respiratory Failure:
Recognized criteria for Respiratory Failure (Source: [facility] Jan 2013)
ABGs: (1 or more) Symptoms Please indicate type if known
1. p)2 <60 or RA SPO2 <91% on RA 1. Tachypnea, SOB, dyspnea Hypoxic
2. pCO2 50 and pH <7.35 2. Use of accessory muscles Hypercapnic
3. pO2 decrease of pCO2 increase by 3. Pallor or cyanosis Hypoxic and Hypercapnic
10 mmHg from baseline if known 4. Anxiety or restlessness Unable to determine
5. Unable to speak in full sentences
Supplemental O2 of > 40% (5LPM) Intubation is not required
Use of terms such as suspected, likely, concern for, or probable (associated with a specific diagnosis that is being evaluated, monitored, or treated as if it exists) are acceptable and can be coded in the inpatient setting, when documented at the
time of discharge.
Thank you,
Graciela Peterson RN
CDI Specialist
[facility] [employer]
Please use your independent medical judgment in providing your response.
[2023-10-29] MEDS: ZYLOPRIM 300 MG PO (17:53)
[2023-10-29] MEDS: FEOSOL 325 MG PO (17:53)
[2023-10-29 18:30] LABS: APTT 76.6 Sec (23.4-35.0)
[2023-10-29] MEDS: ZOFRAN 4 MG IV (19:16)
[2023-10-29] MEDS: LIPITOR 10 MG PO (23:24)
[2023-10-29] MEDS: VITAMIN D3 (cholecalciferol) 50 MCG PO (23:24)
[2023-10-30] MEDS: HEPARIN 25000 UNITS/250 ML IV (01:44)
[2023-10-30] MEDS: ZOSYN 50 IV ×4 (01:45→20:23)
[2023-10-30 03:01] VITALS: BP 111/89
[2023-10-30 03:19] VITALS: BMI 26.3
[2023-10-30 05:20] LABS: Hematocrit 38.5 % (39.0-52.0); Hemoglobin 13.2 g/dL (13.0-18.0); Mean Corp Hgb Conc. 34.3 g/dL (33.0-37.0); Mean Corpuscular Hgb 31.1 pg (27.0-31.0); Mean Corpuscular Volume 90.8 fL (80.0-94.0); Mean Platelet Volume 10.2 fL (7.4-10.4); Platelet Count 219 10^3/uL (130-400); Red Blood Cell Count 4.24 10^6/uL (4.70-6.10); Red Cell Dist. Width 15.5 % (11.5-14.5); White Blood Cell Count 11.4 10^3/uL (4.8-10.8)
--- NOTE | 2023-10-30 05:20 | PTCARENOTE ---
Tele remains Afib w/ BBBC. Denies any pain or discomfort. Pt appears STEVE/rest. Pulse ox sating 89-91% RA. 2L of O2 applied. pt currently sating 95%. IV Heparin gtt currently infusing. Pt aware of POC, call [facility] within reach.
[2023-10-30 05:26] LABS: APTT 76.4 Sec (23.4-35.0)
[2023-10-30 05:39] LABS: Blood Urea Nitrogen 46 mg/dl (9-20); Calcium 9.8 mg/dl (8.4-10.2); Carbon Dioxide 22 mmol/L (22-30); Chloride 103 mmol/L (98-107); Estimated Creatinine Clearance 33 ml/min; Glucose 106 mg/dl (70-99); Potassium 4.3 mmol/L (3.5-5.1); Sodium 136 mmol/L (135-145); eGFR 39.26
[2023-10-30 05:46] LABS: NT-proBNP 7570 pg/ml
[2023-10-30 06:00] VITALS: BMI 26.3
--- NOTE | 2023-10-30 08:00 | PTCARENOTE ---
Assumed care of pt from prev nsg shift; Pt AAOx3 w/no c/o of CP. Pt's VS stable w/HR 80's-90's, BP this AM 151/68; Pt remains in Afib w/a BBB on telemetry monitoring. Pt is dyspneic on exertion; SpO2 on 2L via NC 98%; O2 removed & pt's O2 SpO2 on RA
95%. Pt w/call [facility] within reach & no addtl needs at this time.
[2023-10-30 08:53] VITALS: BP 151/68
[2023-10-30] MEDS: ASPIR LOW (ENTERIC COATED) 81 MG PO (08:57)
[2023-10-30] MEDS: NEURONTIN 400 MG PO ×2 (08:57→20:22)
[2023-10-30] MEDS: CYMBALTA DELAYED RELEASE 30 MG PO (08:57)
[2023-10-30] MEDS: TYLENOL 650 MG PO ×2 (08:57→20:22)
[2023-10-30] MEDS: FLUSH (NSS) 2 FLUSH IV (08:57)
--- NOTE | 2023-10-30 08:59 | PHA.VAN.FU ---
Addendum entered and electronically signed by Nanette Fuentes Akhil 10/30/23 10:12:
Consult reviewed with pharmacy technician per diem. Agree with assessment and plan.
Original Note:
Vancomycin Assessment / Plan
- Assessment
Renal Function: SCR Decreasing
WBC's are: Trending Down
In the past 24 hrs, patient has been: Afebrile
Concomitant Antimicrobials: Pipercillin/Tazobactam
- Assessment - Therapeutic Drug Monitoring
Random Level: 10 ~24hrs after last level 17.2
Calculated ke: 0.0226
Calculated half life (H): 31
- Dosing Plan
Dosing by Level: Re-dose today
Dosing Comments: 1000mg x1
- Monitoring Plan
Random Level: 10/31/23 0600
- Follow Up
Pharmacy will continue to follow.
Vancomycin Follow UP
- -
Patient Age: 83
Patient Sex: Male
Vancomycin Day #: 3
Indication: Pulmonary/Respiratory
Requesting Provider: Vinay
Pertinent Antimicrobial Allergies:
No abx allergies
Height / Weight:
Height 5 ft 10 in
Actual Weight 83 kg
Pertinent Past Medical History: CKD
- Vital Signs / Lab Results
Temp Pulse Resp BP Pulse Ox
97.4 F 94 16 111/89 95
10/30/23 03:19 10/30/23 06:00 10/30/23 03:19 10/30/23 03:01 10/30/23 03:19
Lab Results - Hematology
10/28/23 10/28/23 10/28/23
07:23 13:15 23:00
WBC 15.1 H 16.6 H 13.3 H
10/29/23 10/30/23
05:00 04:53
WBC 12.8 H 11.4 H
Lab Results - Chemistry
10/28/23 10/28/23 10/29/23
07:23 13:15 05:00
BUN 43 H 45 H 54 H
Creatinine 1.7 H 1.8 H 1.9 H
Estimated Creat Clear 33 32 30
Albumin 4.0 3.9 3.9
10/30/23
04:53
BUN 46 H
Creatinine 1.7 H
Estimated Creat Clear 33
Albumin
10/28/23 10/28/23 10/28/23
13:15 14:30 15:53
Lactic Acid 5.5 H* Cancelled Cancelled
10/28/23 10/28/23 10/28/23
16:46 20:30 21:02
Lactic Acid 3.6 H Cancelled Cancelled
10/28/23
21:25
Lactic Acid 1.2
Microbiology Results
10/28/23 16:46 Blood Culture - Preliminary
Blood/Venous No Growth in 24 hours- Final report to follow
10/27/23 20:27 MRSA Screen - Final
Nose No Methicillin Resistant Staphylococcus aureus isolated.
10/28/23 06:21 Legionella Urinary Antigen - Final
Urine Negative for Legionella pneumophila Serogroup 1 antigen.
A negative result does not rule out the possiblity of
Legionella infection due to other serogroups or species of
Legionella. Clinical correlation is recommended.
Streptococcus pneumoniae Antigen (M - Final
Negative for Streptococcus pneumoniae antigen.
A negative result does not exclude infection with
Streptococcus pneumoniae. Clinical correlation is
recommended.
Therapeutic Drug Monitoring
Random Vancomycin 10.0 ug/ml 10/30/23 04:53
--- NOTE | 2023-10-30 09:39 | W.PN.CARDCBS ---
Addendum entered and electronically signed by Joselo Gipson MD 10/30/23 11:33:
I saw and examined the patient.
The [employer] ACCOUNT ASSISTANT or PA's note was reviewed and I agree with the note.
Comment: General: Well developed, well nourished in NAD.
Neck: Supple, no JVD, HJR, carotids +2 B/L, no bruits bilaterally.
Heart: Non displaced PMI, RRR, no murmurs, No S3, S4, no rubs.
Lungs: Clear to auscultation bilaterally, no wheeze, rhonchi, rubs bilaterally,
normal expiratory phase.
Extremities: No clubbing, cyanosis or edema bilaterally.
Neuro: Grossly nonfocal, awake, alert and oriented x3.
He remains chest pain-free. Discussed with patient and daughter by phone regarding need for cardiac catheterization. Discussed with primary service and nephrology and we will plan on cardiac catheterization on or Sunday. cont Iv Heparin.
bnp is elevated but no obvious chf and hold off on lasix with RI.
Original Note:
Today's Communication / Plan
-
Continue IV heparin
Continue to monitor and trend renal function
Continue IV antibiotics
Anticipate cardiac catheterization later this week as renal function continues to improve
Renal ultrasound today
Impression / Plan
-
CP: Dr. Marika Benson
Cardiology: Dr. Ish Nathan
Impression:
Presented 10/27/2023 with ongoing chest pain
Elevated Troponin, 54.3
Admitted with hypotension and shock, possibly septic and/or cardiogenic
PRISCILLA on CKD 3b
Hyponatremia
Chronic HFpEF
Permanent atrial fibrillation
Not chronically anticoagulated due to presence of watchman device
s/p Watchman due to recurrent radiation proctitis bleeding 02/01/21
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
cLBBB
Mild to moderate nonobstructive CAD by cath 07/07/22
HTN
Hx� prostate CA
Hx GBS after back surgery 2015
Hx DVT and B/L PE 2015
Lexiscan mibi 04/04/19: fixed inferolateral defect consistent with an infarct
Lexiscan mibi 06/07/20: No ischemia
Cardiac cath 07/07/22: Mild to moderate nonobstructive CAD, �50 to 60% proximal RCA, IFR negative at 0.95.
Echo 10/12/20: EF 60-65%, mild conc LVH, mild MS mean gradient 5 mmHg and mild MR, severe with peak/mean 69/44 mmHg and DEDRA 0.8 cm sq with mild aortic regurgitation
CARRILLO March 2021: well-seated watchman without leak or thrombus.
Echo 05/15/22: EF 50-55%, stage II diastolic dysfunction, mild to mod MR, TAVR well seated with peak/mean 21/12 mmHg and no aortic regurgitation
Echo 07/03/22: EF 55%, mild MS and mild t mod MR, s/p TAVR well seated with peak/mean 18/10 mmHg, no AR
Echo 10/29/23: EF 55 to 60% with abnormal paradoxical septal motion consistent with left bundle branch block, mild concentric LVH, mild MS with mean gradient 5 millimeters Hg. Moderate to severe MR, severely dilated left atrium. Status post TAVR
Arreaga Armon 26. Peak/mean gradients are 15/9 mmHg. Trace AI. Mild to moderate TR with PAP 53 mmHg, moderately dilated right atrium
Plan:
-Presented 10/27/2023 with ongoing chest pain found to be hypotensive requiring Levophed drip
-Weaned off pressors 10/28/2023 with improvement of blood pressure and lactic acid levels
-Blood cultures negative x 24 hours, urine negative for Legionella or strep pneumonia. Improving white count. Continue broad-spectrum antibiotics per hospitalist
-Abnormal troponin, peaked at 54.3. Now trending downward. Chest pain has symptomatically improved with treatment of possible PNA
-Troponin elevation could be NSTEMI related to known 50-60% RCA or possibly myopericarditis with pain on deep inspiration.
-Will need eventual cardiac catheterization once stable and creatinine improves. Reviewed with nephrology. Tentative cath for 10/31 or 11/01
-Continue heparin drip. Patient is pain chest free
-Of noted patient had cardiac cath 07/07/22 in the setting of NSTEMI, peak Troponin 2.2 at that time, and was found to have an iFR negative 50-60% prox RCA lesion at that time.
PRISCILLA
-Weight is down 3 pounds overnight but still is 4 pounds above baseline admission. Patient received 2 L IVFs this admission.
-pro-BNP 5540 10/27, repeat 7570 which is moderately elevated for him. Patient was given Lasix 40 mg IV x1 10/27/23 and then a single dose of his outpatient dose of torsemide 10 mg daily on 10/28/23, but currently diuretics on hold due to hypotension
(resolved) and PRISCILLA improving, creat 1.7.
-Nephrology following and feels may be secondary to contrast exposure and ATN from hypotension.
-Renal ultrasound pending
-Continue to monitor and trend renal function.
He has permanent Afib and HRs controlled.
-Patient is not chronically anticoagulated due to Watchman in place. Watchman was placed due to recurrent radiation proctitis
-LBBB is chronic on ECG reviewed by me.
Patient's daughter, Sruthi updated by Dr. Gipson, plan reviewed with hospitalist, nephrology and nursing
[facility] 10/29/2023:
Patient came to [facility] early Sunday morning with chest pain and is now admitted with shock and cardiology has been consulted for elevated Troponin. Patient says that chest pain started on Sunday when he was walking in his driveway, chest pain was
described as across his shoulders B/L and it was relieved with rest. Chest pain recurred later in the day with walking. No resting pain. Chest pain then felt more substernal on Sunday and then was more of a centrally located back pain early Sunday
morning. Pain was worse with deep breath, no real positional component. The pain started to become more intense and was happening at rest along with SOB and cough so he came to [facility] early Sunday morning. Initial Troponin was 0.177 and ECG showed
chronic LBBB. CT was negative for PE, but there were small left and trace right pleural effusions. Patient was given Lasix 40 mg IV x1 in the ER. Patient was also started on empiric antibiotics and admitted with SIRS. Hypotension worsened and
Levophed was started, no additional Lasix was given. Lactic acid was elevated. Antibiotics were broadened. Troponin continued to rise was was up to 54 this morning. Heparin gtt started overnight. Patient denies chest pain, even with deep breath,
this AM. Hypotension has improved and Levophed stopped.
Progress Note - Buffer Inflated Pad
Subjective
Date of Service: October 30, 2023
Objective
Labs:
10/30/23 04:53
10/30/23 04:53
Labs
Hgb 13.2 g/dL (13.0-18.0) 10/30/23 04:53
Hct 38.5 % (39.0-52.0) L 10/30/23 04:53
Plt Count 219 10^3/uL (130-400) D 10/30/23 04:53
PT 17.2 Sec (11.4-14.6) H 10/28/23 13:15
INR 1.43 10/28/23 13:15
APTT 76.4 Sec (23.4-35.0) H 10/30/23 04:53
Sodium 136 mmol/L (135-145) 10/30/23 04:53
Potassium 4.3 mmol/L (3.5-5.1) 10/30/23 04:53
BUN 46 mg/dl (9-20) H 10/30/23 04:53
Creatinine 1.7 mg/dL (0.7-1.3) H 10/30/23 04:53
Glucose 106 mg/dl (70-99) H 10/30/23 04:53
Troponins
10/27/23 10/28/23 10/28/23
08:38 07:23 13:15
Troponin I 0.192 H* 0.213 H* 0.212 H*
10/28/23 10/28/23 10/28/23
13:30 21:02 21:25
Troponin I Cancelled Cancelled 33.500 H*
10/29/23 10/29/23
05:00 12:09
Troponin I 54.300 H* D 29.700 H* D
Vital Signs and I&O:
Vital Signs
Temp Pulse Resp BP Pulse Ox
97.4 F 96 16 151/68 95
10/30/23 03:19 10/30/23 09:00 10/30/23 03:19 10/30/23 08:53 10/30/23 03:19
Vital Signs
Temp Pulse Resp BP Pulse Ox
97.4 F 96 16 151/68 95
10/30/23 03:19 10/30/23 09:00 10/30/23 03:19 10/30/23 08:53 10/30/23 03:19
Intake & Output
10/28/23 10/29/23 10/30/23 10/31/23
06:59 06:59 06:59 06:59
Intake Total 720 / 720 2955 / 2955 799 / 799 580 / 580
Output Total 200 / 200 1675 / 1675 400 / 400
Balance 720 / 720 2755 / 2755 -876 / -876 180 / 180
Physical Exam
Physical Exam
GEN: No distress, awake, Ox3, sitting up in chair on room air
HEENT: supple, anicteric, mmm
LUNGS: Mildly decreased breath sounds with few scattered rhonchi otherwise CTA, no wheezes/rales
CV: Irregularly irregular, S1/S2, 2/6 murmur left sternal border and apex
ABD: soft, BS+, NT/ND
EXT: Trace to +1 edema right lower extremity with gauze dressing wrapped around lower leg, trace lower extremity edema on left
NEURO: Gross non-focal
SKIN: No rash, warm, dry, pink
--- NOTE | 2023-10-30 10:39 | CM ---
Chart reviewed. Patient is independent of ADLS, lives with his daughter in a [address] [facility], does not use any DME but has a SPC/RW. Plan is for the patient to return home. CM to follow
[2023-10-30 10:54] LABS: Mycoplasma pneumoniae IgG 0.81 U/L (<=0.09); Mycoplasma pneumoniae-IgM 1.36 U/L (<=0.76)
[2023-10-30 11:51] VITALS: BP 126/79
[2023-10-30] MEDS: FLUSH (NSS) 1 FLUSH IV (13:11)
[2023-10-30] MEDS: VANCOCIN 200 IV (13:11)
--- NOTE | 2023-10-30 13:59 | W.PN.HOSP.TC ---
Today's Communication/Plan
-
Cardiac catheterization once creatinine is better
Continue with current medication
Follow culture data and if negative will consider discontinuing antibiotics.
Assessment / Plan
Assessment / Plan
# Acute chest pain with significant troponin elevation. Clinical concern for non-ST elevation OR. Chronic left bundle branch block noted. Remains chest pain-free. Patient on aspirin. cw Heparin per card. Trops tending down. ECHO with normal
EF. DW Cards -for cardiac cath once creatinine has improved.
CT chest negative for PE .
Cath in June 2022 showed nonobstructive CAD and 50 to 60% proximal RCA, IFR negative at 0.95 ;there was elevated LV end-diastolic pressures then.
# Acute on chronic CHF - pt did have symptom of dyspnea but asymptomatic without SOB. patient has normal EF. Currently without shortness of breath or orthopnea. Elevated BNP and small bilateral pleural effusions noted. Patient had issues
with hypotension- diuretics were on hold [patient normally on torsemide at home]. Follow wt. Doubt clinically pneumonia - cxr not supportive and pt without prodrome of infection. Chest CT also shows no evidence of infiltrates.
#Acute hypotension with shock physiology -unclear etiology- Patient needed brief vasopressors which are off now. Continue with empirical antibiotics pending culture data -if remains neg will dc abx in am.
# Leukocytosis -Afebrile .? sec to infection vs reactive . Elevated procal noted but no clear foci of infection . CW abx pending cx data. UA negative. Chest CT without any infiltrates and consolidation.Improving.
# PRISCILLA on CKD 3 -patient received IV contrast dye for CT chest and also might need cardiac catheterization. No obstructive symptoms. Check bladder scan. Follow I&O's. Appreciate nephrology input.
#Gout
� Continue allopurinol
#Paroxysmal atrial fibrillation-currently in rate controlled A-fib.
-Status post Watchman device
� On aspirin, no anticoagulation
#Essential hypertension
� holding nifedipine
Anticipated Discharge: > 48 hours
Subjective/Interval History
-
Date of Service: October 30, 2023
No chest pain or shortness of breath
Objective Data
-
Labs:
Laboratory Results
10/30/23
04:53
WBC 11.4 H
Hgb 13.2
Hct 38.5 L
Plt Count 219 D
APTT 76.4 H
Sodium 136
Potassium 4.3
Chloride 103
Carbon Dioxide 22
BUN 46 H
Creatinine 1.7 H
Glucose 106 H
Calcium 9.8
Vital Signs:
Vital Signs
Temp Pulse Resp BP Pulse Ox
97.6 F 76 20 126/79 96
10/30/23 12:33 10/30/23 12:00 10/30/23 12:33 10/30/23 11:51 10/30/23 12:33
I&O
10/29/23 10/30/23 10/31/23
06:59 06:59 06:59
Intake Total 2955 / 2955 799 / 799 580 / 580
Output Total 200 / 200 1675 / 1675 400 / 400
Balance 2755 / 2755 -876 / -876 180 / 180
Review of Systems
-
Constitutional: Denies Fever
EENT: Denies Sore Throat
Respiratory: Denies Cough
Abdomen/GI: Denies Abdominal Pain, Nausea or Vomiting
Neuro: Denies Dizzy
Physical Exam
-
General: No Apparent Distress
Respiratory: Crackles (few in right base) and Non Labored Respirations; Negative Wheezes or Accessory Resp Muscle Use
Cardiac: S1/S2 and Irregular Rhythm; Negative Tachycardic
GI: Soft
Neuro: AO x 3
Data Reviewed
-
Labs: Labs Reviewed by me
--- NOTE | 2023-10-30 14:46 | PN.CDI ---
CDI
- -
CDI:
Physician Documentation Request
Admit Date: 10/27/23 09:49
Dear Doctor Rene,
Please review the following and provide your response in the progress notes.
Current documentation includes a diagnosis of hypotension.
Clinical Indicators:
Pt admitted with acute on chronic diastolic CHF
Documented per progress note 10/27, ' Shock, Septic +/- cardiogenic...maintain map >65....-Started on norepinephrine s/p LR boluses....'
Progress notes 10/28 & 10/29,' Acute hypotension with shock physiology -unclear etiology- Patient needed brief vasopressors which are off now. Continue with empirical antibiotics pending culture data -if remains neg will d/c abx...Elevated procal
noted but no clear foci of infection...'
Cardiology consult and progress note 10/29, ' Admitted with hypotension and shock, possibly septic and/or cardiogenic..'
After careful study please provide the suspected type of shock :
Cardiogenic shock
Hypovolemic shock
Other shock ( please specify)
Other
Use of terms such as suspected, likely, concern for, or probable (associated with a specific diagnosis that is being evaluated, monitored, or treated as if it exists) are acceptable and can be coded in the inpatient setting, when documented at the
time of discharge.
Thank you,
Graciela Peterson RN
CDI Specialist
[facility]
Please use your independent medical judgment in providing your response.
[2023-10-30 15:13] VITALS: BP 134/78
--- NOTE | 2023-10-30 15:42 | W.PN.NEPH.PH ---
Today's Communication / Plan
-
- continue to trend Cr and UOP
Assessment/Plan
-
Assessment:
Chest pain with trop elevation
Acute on chronic CHF
Hypotension (previously requiring pressor support)
PRISCILLA on ?CKD
gout
HTN
Plan:
- patient with normal Cr on day of admission so it is unclear if the patient has true CKD. Cr down to 1.7 (peak 1.9)
- likely has PRISCILLA in the setting of contrast exposure + ATN (documented hypotension)
- KUS + bladder with 10mm nephrolith in lower pole of L kidney
- UA bland
- UOP appears to be picking up (continue to trend UOP)
- I am hopeful that we will see continued improvement of kidney function
- please maintain MAP >65
- continue to trend CR
- continue supportive management as you are
planning for cardiac cath with cardiology. would hold off until we see more significant improvement in kidney function
-
-
Date of Service: October 30, 2023
CC / HPI / ROS
-
Chief Complaint:
PRISCILLA
History of Present Illness:
Cr now at 1.7, peak 1.9
UOP picking up
Review of Systems:
feeling well
Labs
-
Labs:
WBC 11.4 10^3/uL (4.8-10.8) H 10/30/23 04:53
RBC 4.24 10^6/uL (4.70-6.10) L 10/30/23 04:53
Hgb 13.2 g/dL (13.0-18.0) 10/30/23 04:53
Hct 38.5 % (39.0-52.0) L 10/30/23 04:53
Plt Count 219 10^3/uL (130-400) D 10/30/23 04:53
Sodium 136 mmol/L (135-145) 10/30/23 04:53
Potassium 4.3 mmol/L (3.5-5.1) 10/30/23 04:53
Chloride 103 mmol/L (98-107) 10/30/23 04:53
Carbon Dioxide 22 mmol/L (22-30) 10/30/23 04:53
BUN 46 mg/dl (9-20) H 10/30/23 04:53
Creatinine 1.7 mg/dL (0.7-1.3) H 10/30/23 04:53
eGFR 39.26 10/30/23 04:53
Glucose 106 mg/dl (70-99) H 10/30/23 04:53
Calcium 9.8 mg/dl (8.4-10.2) 10/30/23 04:53
Phosphorus 4.4 mg/dl (2.5-4.5) 10/28/23 07:23
Mhd-Y-Ruatfopcatc Pept 7570 pg/ml 10/30/23 04:53
Albumin 3.9 g/dl (3.5-5.0) 10/29/23 05:00
Physical Exam
-
Vital Signs:
Vital Signs
Temp Pulse Resp BP Pulse Ox
97.9 F 69 18 134/78 93
10/30/23 15:21 10/30/23 15:13 10/30/23 15:21 10/30/23 15:13 10/30/23 15:21
Cardiovascular:: Regular rate and rhythm
Respiratory:: Bilateral: Coarse
Lung Excursion:: Normal
Abdomen:: Nontender
Bowel Sounds:: Normal
Extremity Edema:: None: Bilateral:
David Catheter: No
[2023-10-30] MEDS: ZYLOPRIM 300 MG PO (17:28)
[2023-10-30 18:20] VITALS: BP 150/82
--- NOTE | 2023-10-30 22:19 | PTCARENOTE ---
Pt rec'd at change of shift awake,alert no c/o pain. Afib on telemetry. Heparin gtt at 900 units/hr. crackles noted 1/3 up on right, occ cough with dyspnea noted with exertion. O2 at 2 lit n/c in use. call [facility] within reach.
[2023-10-30 22:52] VITALS: BP 135/73
[2023-10-30] MEDS: VITAMIN D3 (cholecalciferol) 50 MCG PO (22:53)
[2023-10-30] MEDS: LIPITOR 10 MG PO (22:53)
[2023-10-31] VITALS (11 sets, daily range): BP systolic 136–159; BP diastolic 74–86; PULSE 74–86; O2SAT 95; BMI 26.3
[2023-10-31] MEDS: ZOSYN 50 IV ×2 (03:16→07:48)
[2023-10-31 03:41] LABS: Hematocrit 32.9 % (39.0-52.0); Hemoglobin 11.2 g/dL (13.0-18.0); Mean Corpuscular Hgb 31.2 pg (27.0-31.0); Mean Corpuscular Volume 91.6 fL (80.0-94.0); Mean Platelet Volume 9.7 fL (7.4-10.4); Platelet Count 194 10^3/uL (130-400); Red Blood Cell Count 3.59 10^6/uL (4.70-6.10); Red Cell Dist. Width 15.2 % (11.5-14.5)
[2023-10-31 03:54] LABS: APTT 87.6 Sec (23.4-35.0)
--- NOTE | 2023-10-31 04:20 | DOWNTIME ---
There was a [facility] Client Blind Stitch Machine Operator Downtime on 10/31/2023 from 0100 to 10/31/2023 at 0252. Downtime documentation of patient's care, including medication administrations, has been reconciled in the electronic record per guidelines. Refer to the
patient's paper chart under the miscellaneous tab to see printed paper medication records and downtime forms.
[2023-10-31 04:40] LABS: Blood Urea Nitrogen 34 mg/dl (9-20); Calcium 8.3 mg/dl (8.4-10.2); Carbon Dioxide 19 mmol/L (22-30); Chloride 90 mmol/L (98-107); Estimated Creatinine Clearance 44 ml/min; Glucose 154 mg/dl (70-99); Sodium 138 mmol/L (135-145); Vancomycin Random 11.4 ug/ml; eGFR 54.17
[2023-10-31] MEDS: HEPARIN 25000 UNITS/250 ML IV (05:39)
[2023-10-31] MEDS: CYMBALTA DELAYED RELEASE 30 MG PO (07:48)
[2023-10-31] MEDS: TYLENOL 650 MG PO ×2 (07:48→19:55)
[2023-10-31] MEDS: ASPIR LOW (ENTERIC COATED) 81 MG PO (07:48)
[2023-10-31] MEDS: NEURONTIN 400 MG PO ×2 (07:48→19:57)
--- NOTE | 2023-10-31 08:23 | PHA.VAN.FU ---
Addendum entered and electronically signed by Nanette Fuentes Akhil 10/31/23 09:06:
Reviewed consult with pharmacy district manager. Agree with assessment and plan.
Original Note:
Vancomycin Assessment / Plan
- Assessment
Renal Function: SCR Decreasing
WBC's are: WNL
In the past 24 hrs, patient has been: Afebrile
Concomitant Antimicrobials: Pipercillin/Tazobactam
- Assessment - Therapeutic Drug Monitoring
Random Level: 11.4 ~14hrs after previous infusion of 1000mg
- Dosing Plan
Dosing by Level: Re-dose today
Dosing Comments: 1250mg x1
- Monitoring Plan
Random Level: 11/01/23 0600
- Follow Up
Pharmacy will continue to follow.
Vancomycin Follow UP
- -
Patient Age: 83
Patient Sex: Male
Vancomycin Day #: 4
Indication: Pulmonary/Respiratory
Requesting Provider: Vinay
Pertinent Antimicrobial Allergies:
No abx allergies
Height / Weight:
Height 5 ft 10 in
Actual Weight 83.1 kg
IBW in k
Adjusted BW in k.1
Pertinent Past Medical History: CKD
- Vital Signs / Lab Results
Temp Pulse Resp BP Pulse Ox
97.9 F 78 20 146/86 98
10/31/23 06:46 10/31/23 03:11 10/31/23 06:46 10/31/23 03:11 10/31/23 06:46
Lab Results - Hematology
10/28/23 10/28/23 10/29/23
13:15 23:00 05:00
WBC 16.6 H 13.3 H 12.8 H
10/30/23 10/31/23
04:53 03:29
WBC 11.4 H 8.0
Lab Results - Chemistry
10/28/23 10/28/23 10/29/23
07:23 13:15 05:00
BUN 43 H 45 H 54 H
Creatinine 1.7 H 1.8 H 1.9 H
Estimated Creat Clear 33 32 30
Albumin 4.0 3.9 3.9
10/30/23 10/31/23
04:53 03:29
BUN 46 H 34 H
Creatinine 1.7 H 1.3
Estimated Creat Clear 33 44
Albumin
10/28/23 10/28/23 10/28/23
13:15 14:30 15:53
Lactic Acid 5.5 H* Cancelled Cancelled
10/28/23 10/28/23 10/28/23
16:46 20:30 21:02
Lactic Acid 3.6 H Cancelled Cancelled
10/28/23
21:25
Lactic Acid 1.2
Microbiology Results
10/28/23 16:46 Blood Culture - Preliminary
Blood/Venous No Growth in 48 hours- Final report to follow
10/27/23 20:27 MRSA Screen - Final
Nose No Methicillin Resistant Staphylococcus aureus isolated.
Therapeutic Drug Monitoring
Random Vancomycin 11.4 ug/ml 10/31/23 03:29
--- NOTE | 2023-10-31 08:58 | PTCARENOTE ---
Assumed care at 0700. Patient slept well, AO x3. Oxygen 2 liters NC fine base rales, no cough, comfortable at rest, no shortness of breath. Right lower leg dressing removed and redressed per orders. Denies pain, A-FIB BBB HR 74. Assisted to chair to
order his breakfast. Dion wrap applied to right lower leg. Heparin infusing at 900 units/hr, call [facility] in reach
--- NOTE | 2023-10-31 09:13 | W.PN.CARDCBS ---
Addendum entered and electronically signed by Traci Reece PA-C 10/31/23 16:48:
Updated patient's daughter, Sruthi, by phone for 8 minutes about plans for cath in AM including RHC and possible need for additional diuresis and monitoring of Cre.
Addendum entered and electronically signed by Regino Lopez MD 10/31/23 12:41:
I saw and examined the patient.
The Grade Tamper's note was reviewed and I agree with the note.
Comment:
GEN: No distress, awake, Ox3
HEENT: supple, anicteric, mmm
LUNGS: scatt rhonchi
CV: irreg, S1/S2, 1/6 syst LSB, no gallop
ABD: soft, BS+, NT/ND
EXT: No edema
NEURO: Gross non-focal
SKIN: No rash
PLan:
Creat down to 1.3. Plan for RHC/LHC in AM
Npo after midnight
Cont to hold diuretics.
Cont ASA, Atorvastatin, Nifedipine.
Original Note:
Today's Communication / Plan
-
Tentatively plan for cath in AM if Cre remains stable
RHC would also be helpful, suspect currently volume overloaded with PRISCILLA on admission
Impression / Plan
-
CP: Dr. Marika Benson
Cardiology: Dr. Ish Nathan
Impression:
Presented 10/27/2023 with ongoing chest pain
Elevated Troponin, 54.3, possible NSTEMI
Admitted with hypotension and shock, possibly septic and/or cardiogenic
PRISCILLA on CKD 3b
Hyponatremia
Chronic HFpEF
Permanent atrial fibrillation
Not chronically anticoagulated due to presence of watchman device
s/p Watchman due to recurrent radiation proctitis bleeding 02/01/21
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
cLBBB
Mild to moderate nonobstructive CAD by cath 07/07/22
HTN
Hx� prostate CA
Hx GBS after back surgery 2015
Hx DVT and B/L PE 2015
Lexiscan mibi 04/04/19: fixed inferolateral defect consistent with an infarct
Lexiscan mibi 06/07/20: No ischemia
Cardiac cath 07/07/22: Mild to moderate nonobstructive CAD, �50 to 60% proximal RCA, IFR negative at 0.95.
Echo 10/12/20: EF 60-65%, mild conc LVH, mild MS mean gradient 5 mmHg and mild MR, severe with peak/mean 69/44 mmHg and DEDRA 0.8 cm sq with mild aortic regurgitation
CARRILLO March 2021: well-seated watchman without leak or thrombus.
Echo 05/15/22: EF 50-55%, stage II diastolic dysfunction, mild to mod MR, TAVR well seated with peak/mean 21/12 mmHg and no aortic regurgitation
Echo 07/03/22: EF 55%, mild MS and mild t mod MR, s/p TAVR well seated with peak/mean 18/10 mmHg, no AR
Echo 10/29/23: EF 55 to 60% with abnormal paradoxical septal motion consistent with left bundle branch block, mild concentric LVH, mild MS with mean gradient 5 millimeters Hg. Moderate to severe MR, severely dilated left atrium. Status post TAVR
Arreaga Ramon 26. Peak/mean gradients are 15/9 mmHg. Trace AI. Mild to moderate TR with PAP 53 mmHg, moderately dilated right atrium
Plan:
-Troponin peaked at 54.3. Echo with preserved EF. No new WMA. Chest pain free since initiation of Heparin gtt and treatment for PNA started on admission.
-Reviewed with patient results of cardiac cath 07/07/22 in the setting of NSTEMI, peak Troponin 2.2 at that time, and was found to have an iFR negative 50-60% prox RCA lesion at that time. Patient is agreeable to cath, likely if Cre stable.
-Cre 1.1 on admission and then peaked at 1.9 in the setting of hypotension and shock. Nephrology following and Cre improved to 1.3 on 10/31/23.
-Outpatient dose of aspirin 81 mg daily continued. Consider adding Plavix for possible NSTEMI.
-pro-BNP 7570 and has trended up throughout admission. Patient was given Lasix 40 mg IV x1 10/27/23 and then a single dose of his outpatient dose of torsemide 10 mg daily on 10/28/23, but currently no diuretics ordered.
-Patient with known permanent Afib and HRs controlled. Patient was not taking rate controlling meds prior to admission.
-Patient is not chronically anticoagulated due to Watchman in place. Watchman was placed due to recurrent radiation proctitis
HPI 10/29/2023:
Patient came to [facility] early Sunday morning with chest pain and is now admitted with shock and cardiology has been consulted for elevated Troponin. Patient says that chest pain started on Sunday when he was walking in his driveway, chest pain was
described as across his shoulders B/L and it was relieved with rest. Chest pain recurred later in the day with walking. No resting pain. Chest pain then felt more substernal on Sunday and then was more of a centrally located back pain early Sunday
morning. Pain was worse with deep breath, no real positional component. The pain started to become more intense and was happening at rest along with SOB and cough so he came to [facility] early Sunday morning. Initial Troponin was 0.177 and ECG showed
chronic LBBB. CT was negative for PE, but there were small left and trace right pleural effusions. Patient was given Lasix 40 mg IV x1 in the ER. Patient was also started on empiric antibiotics and admitted with SIRS. Hypotension worsened and
Levophed was started, no additional Lasix was given. Lactic acid was elevated. Antibiotics were broadened. Troponin continued to rise was was up to 54 this morning. Heparin gtt started overnight. Patient denies chest pain, even with deep breath,
this AM. Hypotension has improved and Levophed stopped.
Progress Note - Manager Child
Subjective
Date of Service: October 31, 2023
No chest pain
Objective
Labs:
10/31/23 03:29
10/31/23 03:29
Labs
Hgb 11.2 g/dL (13.0-18.0) L 10/31/23 03:29
Hct 32.9 % (39.0-52.0) L 10/31/23 03:29
Plt Count 194 10^3/uL (130-400) 10/31/23 03:29
PT 17.2 Sec (11.4-14.6) H 10/28/23 13:15
INR 1.43 10/28/23 13:15
APTT 87.6 Sec (23.4-35.0) H 10/31/23 03:29
Sodium 138 mmol/L (135-145) 10/31/23 03:29
Potassium 4.0 mmol/L (3.5-5.1) 10/31/23 03:29
BUN 34 mg/dl (9-20) H 10/31/23 03:29
Creatinine 1.3 mg/dL (0.7-1.3) 10/31/23 03:29
Glucose 154 mg/dl (70-99) H 10/31/23 03:29
Troponins
10/28/23 10/28/23 10/28/23
13:15 13:30 21:02
Troponin I 0.212 H* Cancelled Cancelled
10/28/23 10/29/23 10/29/23
21:25 05:00 12:09
Troponin I 33.500 H* 54.300 H* D 29.700 H* D
Vital Signs and I&O:
Vital Signs
Temp Pulse Resp BP Pulse Ox
97.9 F 85 20 146/78 98
10/31/23 06:46 10/31/23 08:00 10/31/23 06:46 10/31/23 06:49 10/31/23 06:46
Vital Signs
Temp Pulse Resp BP Pulse Ox
97.9 F 85 20 146/78 98
10/31/23 06:46 10/31/23 08:00 10/31/23 06:46 10/31/23 06:49 10/31/23 06:46
Intake & Output
10/29/23 10/30/23 10/31/23 11/01/23
06:59 06:59 06:59 06:59
Intake Total 2955 / 2955 799 / 799 1658 / 1658
Output Total 200 / 200 1675 / 1675 400 / 400
Balance 2755 / 2755 -876 / -876 1258 / 1258
Physical Exam
Physical Exam
GEN: AAO x3
HEENT: MMM
LUNGS: Wearing oxygen at 2 L NC. No audible wheeze
CV: Afib on tele
EXT: RLE dressing surrounding ankle is CDI without tenderness or malodor.
NEURO: Gross non-focal
SKIN: No rash.
[2023-10-31] MEDS: VANCOCIN 275 MG IV (11:03)
--- NOTE | 2023-10-31 11:04 | CM ---
Chart reviewed. Patient is independent of ADLS, lives with his daughter in a [address], [facility], has a RW and SPC at home but does not use. Patient is at home alone during the day. PT evaluation recommends HH. Referral sent. Plan is for patient to
return home with [facility]. CM to follow
--- NOTE | 2023-10-31 11:32 | W.PN.HOSP.TC ---
Addendum entered and electronically signed by Rodri López MD 10/31/23 16:06:
Acute hypoxic respiratory insufficiency in setting of acute CHF -resolved
AFib is permanent
Lactic acidosis was noted on admission.
Original Note:
Today's Communication/Plan
-
Continue IV heparin. Await the cardiac authorization.
Hold further antibiotics and follow clinically.
Assessment / Plan
Assessment / Plan
# Acute chest pain with significant troponin elevation. Clinical concern for non-ST elevation PA. Chronic left bundle branch block noted. Remains chest pain-free. Patient on aspirin. cw Heparin per card. Trops tending down. ECHO with normal
EF. For cardiac cath once creatinine has improved.
CT chest negative for PE .
Cath in June 2022 showed nonobstructive CAD and 50 to 60% proximal RCA, IFR negative at 0.95 ;there was elevated LV end-diastolic pressures then.
# Acute on chronic CHF - pt did have symptom of dyspnea but asymptomatic without SOB. patient has normal EF. Currently without shortness of breath or orthopnea. Elevated BNP and small bilateral pleural effusions noted. Patient had issues
with hypotension- diuretics were on hold [patient normally on torsemide at home]. Follow wt. Doubt clinically pneumonia - cxr not supportive and pt without prodrome of infection. Chest CT also shows no evidence of infiltrates.
#Acute hypotension with shock physiology -unclear etiology- Patient needed brief vasopressors which are off now.
# Leukocytosis -Remains Afebrile .? sec to infection vs reactive . Elevated procal noted but no clear foci of infection .cx data neg so far. UA negative. Chest CT without any infiltrates and consolidation.No GI or symptoms .Favor holding abx
and follow .
# PRISCILLA on CKD 3 -patient received IV contrast dye for CT chest and also might need cardiac catheterization. No obstructive symptoms. Follow I&O's. Appreciate nephrology input. Cr improved to 1.3.
#Gout
� Continue allopurinol
#Paroxysmal atrial fibrillation-currently in rate controlled A-fib.
-Status post Watchman device
� On aspirin, no anticoagulation
#Essential hypertension
� holding nifedipine
Anticipated Discharge: 24 - 48 hours
Subjective/Interval History
-
Date of Service: October 31, 2023
Patient without chest pain or shortness of breath.
Objective Data
-
Labs:
Laboratory Results
10/31/23
03:29
WBC 8.0
Hgb 11.2 L
Hct 32.9 L
Plt Count 194
APTT 87.6 H
Sodium 138
Potassium 4.0
Chloride 90 L
Carbon Dioxide 19 L
BUN 34 H
Creatinine 1.3
Glucose 154 H
Calcium 8.3 L D
Vital Signs:
Vital Signs
Temp Pulse Resp BP Pulse Ox
97.7 F 74 16 141/82 94
10/31/23 11:14 10/31/23 11:15 10/31/23 11:14 10/31/23 11:15 10/31/23 11:14
I&O
10/30/23 10/31/23 11/01/23
06:59 06:59 06:59
Intake Total 799 / 799 1658 / 1658 375 / 375
Output Total 1675 / 1675 400 / 400
Balance -876 / -876 1258 / 1258 375 / 375
Review of Systems
-
Constitutional: Denies Fever
EENT: Denies Sore Throat
Respiratory: Denies Cough or Trouble Breathing
Cardiac: Denies Chest Pain
Abdomen/GI: Denies Abdominal Pain, Nausea or Vomiting
Neuro: Denies Dizzy
Physical Exam
-
General: No Apparent Distress
HEENT: Moist Mucous Membranes
Respiratory: Crackles (few in right base)
Cardiac: S1/S2 and Irregular Rhythm; Negative Tachycardic
GI: Soft
Neuro: AO x 3
Psych: Calm; Negative Confused
Data Reviewed
-
Labs: Labs Reviewed by me
--- NOTE | 2023-10-31 12:33 | W.PN.NEPH.PH ---
Today's Communication / Plan
-
ok for cath
Assessment/Plan
-
Assessment:
Chest pain with trop elevation
Acute on chronic CHF
Hypotension (previously requiring pressor support)
PRISCILLA on [id number] cr 1.3-1.6-follows Dr Reina
gout
HTN
s/p TAVR for severe December 02, 2020
Atrial fibrillation, permanent
s/p Watchman due to recurrent radiation proctitis bleeding February 01, 2021 remains on aspirin
h/o prostate CA
h/o GBS after back surgery 2015
h/o DVT and B/L PE 2015
BPH on tamsulosin
Plan:
- PRISCILLA -n the setting of contrast exposure + ATN (documented hypotension)
cr improving to baseline , ok for heart cath
- KUS + bladder with 10mm nephrolith in lower pole of L kidney
gentle preventive bicarb IVF for contrast if ok with cards, noted wt is up since admit
BP stable
d/w pt and nursing
-
-
Date of Service: October 31, 2023
CC / HPI / ROS
-
Chief Complaint:
PRISCILLA
History of Present Illness:
Cr now at 1.3, bciarb level 19
wt no change, on RA
Review of Systems:
no cp or sob
Labs
-
Labs:
WBC 8.0 10^3/uL (4.8-10.8) 10/31/23 03:29
RBC 3.59 10^6/uL (4.70-6.10) L 10/31/23 03:29
Hgb 11.2 g/dL (13.0-18.0) L 10/31/23 03:29
Hct 32.9 % (39.0-52.0) L 10/31/23 03:29
Plt Count 194 10^3/uL (130-400) 10/31/23 03:29
Sodium 138 mmol/L (135-145) 10/31/23 03:29
Potassium 4.0 mmol/L (3.5-5.1) 10/31/23 03:29
Chloride 90 mmol/L (98-107) L 10/31/23 03:29
Carbon Dioxide 19 mmol/L (22-30) L 10/31/23 03:29
BUN 34 mg/dl (9-20) H 10/31/23 03:29
Creatinine 1.3 mg/dL (0.7-1.3) 10/31/23 03:29
eGFR 54.17 10/31/23 03:29
Glucose 154 mg/dl (70-99) H 10/31/23 03:29
Calcium 8.3 mg/dl (8.4-10.2) L D 10/31/23 03:29
Phosphorus 4.4 mg/dl (2.5-4.5) 10/28/23 07:23
Pjs-S-Rqdspsgtnml Pept 7570 pg/ml 10/30/23 04:53
Albumin 3.9 g/dl (3.5-5.0) 10/29/23 05:00
Physical Exam
-
Vital Signs:
Vital Signs
Temp Pulse Resp BP Pulse Ox
97.7 F 74 16 141/82 94
10/31/23 11:14 10/31/23 11:15 10/31/23 11:14 10/31/23 11:15 10/31/23 11:14
Cardiovascular:: Regular rate and rhythm
Respiratory:: Bilateral: CTA
Lung Excursion:: Normal
Abdomen:: Nontender and Soft
Extremity Edema:: None: Bilateral:
David Catheter: No
--- NOTE | 2023-10-31 13:51 | CHAP ---
Msgr. Deepak Stone of [facility] in [place] anointed Mr. Branham.
[2023-10-31] MEDS: ZYLOPRIM 300 MG PO (16:32)
[2023-10-31] MEDS: FEOSOL 325 MG PO (16:32)
[2023-10-31] MEDS: LIPITOR 10 MG PO (22:22)
[2023-10-31] MEDS: VITAMIN D3 (cholecalciferol) 50 MCG PO (22:23)
[2023-11-01] VITALS (14 sets, daily range): BP systolic 136–173; BP diastolic 75–90; BMI 26.2
--- NOTE | 2023-11-01 03:01 | PTCARENOTE ---
Rec'd pt at 1900. Pt on TELE monitor in Afib, VSS, and AAOx3. Pt denied any pain or discomfort and agreed to report any changes in pain status to RN. Pt currently with heparin infusing at 900 units per hour and NPO at midnight for possible cath
in AM. Pt resting with call [facility] in reach.
[2023-11-01 03:39] LABS: Hematocrit 36.9 % (39.0-52.0); Hemoglobin 12.4 g/dL (13.0-18.0); Mean Corp Hgb Conc. 33.6 g/dL (33.0-37.0); Mean Corpuscular Hgb 30.9 pg (27.0-31.0); Mean Platelet Volume 10.2 fL (7.4-10.4); Platelet Count 238 10^3/uL (130-400); Red Blood Cell Count 4.01 10^6/uL (4.70-6.10); Red Cell Dist. Width 15.3 % (11.5-14.5)
[2023-11-01 03:44] LABS: APTT 59.3 Sec (23.4-35.0)
[2023-11-01 03:51] LABS: Blood Urea Nitrogen 31 mg/dl (9-20); Calcium 10.1 mg/dl (8.4-10.2); Carbon Dioxide 22 mmol/L (22-30); Chloride 104 mmol/L (98-107); Estimated Creatinine Clearance 41 ml/min; Glucose 122 mg/dl (70-99); Potassium 4.4 mmol/L (3.5-5.1); Sodium 140 mmol/L (135-145); eGFR 49.56
[2023-11-01] MEDS: TYLENOL 650 MG PO ×2 (07:48→20:28)
[2023-11-01] MEDS: CYMBALTA DELAYED RELEASE 30 MG PO (07:48)
[2023-11-01] MEDS: NEURONTIN 400 MG PO ×2 (07:48→20:28)
[2023-11-01] MEDS: ASPIR LOW (ENTERIC COATED) 81 MG PO (07:48)
[2023-11-01] MEDS: HEPARIN 25000 UNITS/250 ML IV (08:30)
--- NOTE | 2023-11-01 11:26 | PTCARENOTE ---
Patient received from the crime lab technician alert and awake. Right radial band intact and right brachial site CDI , Tegaderm and gauze dressing. VSS, A-fib HR 66, POX 94% on room air
--- NOTE | 2023-11-01 11:50 | CM ---
Chart reviewed. Patient is independent of ADLS, lives with his daughter in a [address] [facility], [facility], has a SPC and RW but does not use them. Plan is for the patient to return home with [facility]. CM to follow
--- NOTE | 2023-11-01 11:50 | ITS.CL.CATH ---
[employer] - Catheterization
Cardiac Catheterization
Procedure Report:
RIGHT AND LEFT HEART STUDY
Date of Procedure: November 01, 2023
Referring: Dr. Julio Cesar Lopez
PROCEDURES:
1. Right heart catheterization
2. Coronary angiography
INDICATION: This is an 83-year-old gentleman with a past medical history notable for hypertension, hyperlipidemia, severe aortic stenosis post 29 mm Arreaga ESTEFANIA TAVR valve in 2020. He has paroxysmal atrial fibrillation and underwent Watchman
procedure for closure of the left atrial appendage. He has a history of bilateral pulmonary emboli. Prior DVTs with bilateral PEs. He presented to [facility] with chest discomfort and elevated troponin peaking at 59 mg/dL. His most
recent echocardiogram was notable for heavy mitral annular calcification and at least moderate if not severe mitral regurgitation which may be underestimated due to heavy MAC.
ACCESS: Right radial artery with placement of a 6 Vietnamese arterial sheath in right brachial vein using ultrasound-guided access and placement of a 5 Vietnamese sheath
HEMODYNAMICS : mmHg
RA (m) : 20
RV (s/d) : 62/9, 19
PA (s/d, m) : 67/26, 40
PCWP (m) : 30 with V wave to 52 mmHg
AO (s/d, m) : 153/80, 107
Estimated Paula Cardiac Output: 4.6 L / min and Cardiac Index: 2.3 L/ min / m-2
Systemic vascular resistance: 18.9 Wood units or 1513 [id number](-5)
Pulmonary vascular resistance: 2.2 Wood units or 174 [id number](-5)
CORONARY FINDINGS :
Dominance: Right
LEFT MAIN: Normal
LEFT ANTERIOR DESCENDING: The LAD arises normally from the left main and runs in the anterior interventricular groove. The LAD appears angiographically stable when compared to the most recent angiogram from 06/2022 with VANESA-3 flow distally. The
LAD has minor luminal irregularities over its course but no angiographically focal obstructive/high-grade stenosis
CIRCUMFLEX: The circumflex is a medium caliber nondominant vessel supplying a medium caliber OM1 and terminating in a sizable bifurcating OM 2. Both OM1 and OM 2 are widely patent
RIGHT CORONARY ARTERY: The right coronary artery is a moderate caliber dominant vessel that has a 40% proximal stenosis. The remainder of the RCA remains angiographically stable and supplies a moderate caliber PDA with only minor luminal
irregularities
VENTRICULOGRAPHY: Not done
RADIATION SUMMARY: Fluoro Time (min): 3.2, Dose (mGy): 374, DAP (Gy.cm2) : 26.6
CONCLUSIONS
1. Noncritical coronary disease with stable coronary anatomy when compared to the most recent catheterization from June 2022
2. Preserved left ventricular function by echocardiography
3. Moderate to severe mitral regurgitation with elevated right and left ventricular filling pressures
RECOMMENDATIONS
1. Medical therapy
2. Gradual diuresis
3. May consider CARRILLO to evaluate severity of mitral regurgitation
Copy to: Dr. Ish Nathan
--- NOTE | 2023-11-01 13:57 | W.PN.HOSP.TC ---
Today's Communication/Plan
-
Start on diuresis
Follow Cr
DC planning
Assessment / Plan
Assessment / Plan
# Acute chest pain with significant troponin elevation. Clinical concern for non-ST elevation WA. Chronic left bundle branch block noted. Remains chest pain-free. Patient on aspirin. cw Heparin per card. Trops tending down. ECHO with normal
EF. For cardiac cath once creatinine has improved.
CT chest negative for PE .
Cath in June 2022 showed nonobstructive CAD and 50 to 60% proximal RCA, IFR negative at 0.95 ;there was elevated LV end-diastolic pressures then.
Cardiac cath 11/01/23 -shows stable CAD and didnt need new interventions.
# Acute on chronic CHF - pt did have symptom of dyspnea but asymptomatic without SOB. patient has normal EF. Currently without shortness of breath or orthopnea. Elevated BNP and small bilateral pleural effusions noted. Patient had issues
with hypotension- diuretics were on hold [patient normally on torsemide at home]. Follow wt. Doubt clinically pneumonia - cxr not supportive and pt without prodrome of infection. Chest CT also shows no evidence of infiltrates.
Right and left heart catheter shows increased right and left-sided filling pressures. Consider starting diuretics today and follow creatinine closely.
#Mild to moderate mitral regurgitation- CARRILLO at somepoint to eval further per cards
#Acute hypotension with shock physiology -unclear etiology- Patient needed brief vasopressors which are off now.
# Leukocytosis -Remains Afebrile .? sec to infection vs reactive . Elevated procal noted but no clear foci of infection .cx data neg so far. UA negative. Chest CT without any infiltrates and consolidation.No GI or symptoms .Favor holding abx
and follow . Stable off of abx.
# PRISCILLA on CKD 3 -patient received IV contrast dye for CT chest and also might need cardiac catheterization. No obstructive symptoms. Follow I&O's. Appreciate nephrology input. Cr improved to 1.4.
#Gout
� Continue allopurinol
#Paroxysmal atrial fibrillation-currently in rate controlled A-fib.
-Status post Watchman device
� On aspirin, no anticoagulation
#Essential hypertension
� holding nifedipine
Anticipated Discharge: 24 - 48 hours
Subjective/Interval History
-
Date of Service: November 01, 2023
Status post cardiac catheterization-denies any chest pain. No shortness of breath at rest. Remains off of oxygen.
Objective Data
-
Labs:
Laboratory Results
11/01/23 11/01/23
02:44 09:50
WBC 8.0
Hgb 12.4 L
Hct 36.9 L
Plt Count 238 D
APTT 59.3 H Pending
Sodium 140
Potassium 4.4
Chloride 104
Carbon Dioxide 22
BUN 31 H
Creatinine 1.4 H
Glucose 122 H
Calcium 10.1 D
Vital Signs:
Vital Signs
Temp Pulse Resp BP Pulse Ox
97.2 F 75 20 158/86 92
11/01/23 11:47 11/01/23 13:00 11/01/23 11:47 11/01/23 12:30 11/01/23 11:47
I&O
10/31/23 11/01/23 11/02/23
06:59 06:59 06:59
Intake Total 1658 / 1658 495 / 495
Output Total 400 / 400
Balance 1258 / 1258 495 / 495
Review of Systems
-
EENT: Denies Sore Throat
Respiratory: Denies Cough
Abdomen/GI: Denies Abdominal Pain, Nausea or Vomiting
Neuro: Denies Dizzy
Physical Exam
-
General: No Apparent Distress
HEENT: Moist Mucous Membranes
Respiratory: Crackles (bibasal) and Non Labored Respirations; Negative Wheezes or Accessory Resp Muscle Use
Cardiac: Regular Rhythm, S1/S2 and Murmur
Neuro: AO x 3
Data Reviewed
-
Labs: Labs Reviewed by me
--- NOTE | 2023-11-01 14:38 | W.PN.NEPH.PH ---
Today's Communication / Plan
-
start lasix
Assessment/Plan
-
Assessment:
Chest pain with trop elevation
Acute on chronic CHF
Hypotension (previously requiring pressor support)
PRISCILLA on [id number] cr 1.3-1.6-follows Dr Reina
gout
HTN
s/p TAVR for severe December 02, 2020
Atrial fibrillation, permanent
s/p Watchman due to recurrent radiation proctitis bleeding February 01, 2021 remains on aspirin
h/o prostate CA
h/o GBS after back surgery 2015
h/o DVT and B/L PE 2015
BPH on tamsulosin
Plan:
PRISCILLA -n the setting of contrast exposure + ATN (documented hypotension)
cr stable at baseline 1.4
- KUS + bladder with 10mm nephrolith in lower pole of L kidney
s/p L and RHC today , non critical CAD, mod to severe MR with high PCWP of 30
gentle diuresis lasix 40mg dily in am
follow cr post contrast
BP on high end
d/w pt and nursing
-
-
Date of Service: November 01, 2023
CC / HPI / ROS
-
Chief Complaint:
PRISCILLA
History of Present Illness:
Cr now at 1.4 bciarb level
wt slightly down, on RA
Review of Systems:
no cp or sob at rest
Labs
-
Labs:
WBC 8.0 10^3/uL (4.8-10.8) 11/01/23 02:44
RBC 4.01 10^6/uL (4.70-6.10) L 11/01/23 02:44
Hgb 12.4 g/dL (13.0-18.0) L 11/01/23 02:44
Hct 36.9 % (39.0-52.0) L 11/01/23 02:44
Plt Count 238 10^3/uL (130-400) D 11/01/23 02:44
Sodium 140 mmol/L (135-145) 11/01/23 02:44
Potassium 4.4 mmol/L (3.5-5.1) 11/01/23 02:44
Chloride 104 mmol/L (98-107) 11/01/23 02:44
Carbon Dioxide 22 mmol/L (22-30) 11/01/23 02:44
BUN 31 mg/dl (9-20) H 11/01/23 02:44
Creatinine 1.4 mg/dL (0.7-1.3) H 11/01/23 02:44
eGFR 49.56 11/01/23 02:44
Glucose 122 mg/dl (70-99) H 11/01/23 02:44
Calcium 10.1 mg/dl (8.4-10.2) D 11/01/23 02:44
Phosphorus 4.4 mg/dl (2.5-4.5) 10/28/23 07:23
Uct-M-Ezamfsyqoaa Pept 7570 pg/ml 10/30/23 04:53
Albumin 3.9 g/dl (3.5-5.0) 10/29/23 05:00
Physical Exam
-
Vital Signs:
Vital Signs
Temp Pulse Resp BP Pulse Ox
97.2 F 75 20 158/86 92
11/01/23 11:47 11/01/23 13:00 11/01/23 11:47 11/01/23 12:30 11/01/23 11:47
Cardiovascular:: Regular rate and rhythm
Respiratory:: Bilateral: CTA (anteriorly)
Lung Excursion:: Normal
Abdomen:: Nontender and Soft
Extremity Edema:: None: Bilateral: (MIRTA wraps present)
David Catheter: No
--- NOTE | 2023-11-01 15:46 | PTCARENOTE ---
TR band off, dry sterile dressing applied with Tegaderm. Walked to the bathroom, call [facility] in reach
[2023-11-01] MEDS: ZYLOPRIM 300 MG PO (17:21)
[2023-11-01] MEDS: VITAMIN D3 (cholecalciferol) 50 MCG PO (22:31)
[2023-11-01] MEDS: LIPITOR 10 MG PO (22:31)
[2023-11-02] VITALS (15 sets, daily range): BP systolic 116–180; BP diastolic 60–95; PULSE 72–78; O2SAT 97; BMI 26.1
--- NOTE | 2023-11-02 03:53 | PTCARENOTE ---
Rec'd pt at 19:00. Pt on TELE monitor in AFIB with controlled HR, VSS, and AAOx3. Pt post heart cath with R brachial vein and R radial arterty dressings dry and intact. Pt agreeded to report any bleeding or discharge from site immediately to RN.
Pt denied any chest pain or discomfort, however agreed to report RN immediately with any changes.
[2023-11-02 05:33] LABS: Blood Urea Nitrogen 23 mg/dl (9-20); Calcium 9.7 mg/dl (8.4-10.2); Carbon Dioxide 23 mmol/L (22-30); Chloride 105 mmol/L (98-107); Estimated Creatinine Clearance 57 ml/min; Glucose 107 mg/dl (70-99); Potassium 4.3 mmol/L (3.5-5.1); Sodium 142 mmol/L (135-145); eGFR > 60.00
--- NOTE | 2023-11-02 07:28 | W.PN.CARDCBS ---
Addendum entered and electronically signed by Isabella Hatch DO 11/02/23 10:57:
I saw and examined the patient.
The Space Officer's note was reviewed and I agree with the note.
Comment: Patient seen and examined with cardiac PA. Reviewed left heart catheterization findings. Fortunately no further chest pain. Continues to have some shortness of breath particularly with exertion. No dizziness or lightheadedness. Radial
site intact
GEN: No distress, awake, alert, oriented x3
HEENT: mmm
LUNGS: CTA b/l, no wheezes/rales
CV: irregularly irregular, S1/S2, 2/6 syst murmur
EXT: Right radial site intact without hematoma. Trace edema b/l LE
NEURO: Gross non-focal
Plan:
-Presented with chest pain with NSTEMI, peak CTNI 54.3
-[facility] with stable coronary disease; no revascularization indicated
-Elevated troponin in setting of hypotension/shock with improved hemodynamics
-Continue medical management. Restart nifedipine 30mg daily. Held on admission due to hypotension.
-Continue aspirin 81mg daily.
-Will start Plavix 75 mg daily for 1 month
-Continue Lipitor 10 mg daily; transition from simvastatin. Goal LDL less than 70 mg/dL
Heart failure with preserved ejection fraction with moderate to severe mitral regurgitation.
-Wedge pressure at time of cardiac catheterization elevated at 30
-2D echocardiogram reviewed, mitral valve leaflets are thickened with significant leaflet and posterior annular calcification. Based on transthoracic echocardiogram, would not be a good MitraClip candidate
-Continue diuresis with IV lasix 40mg daily. Weight stable overnight at 182lbs. Creat improved at 1.0.
-Follow daily weights, I&Os.
-Permanent Afib and HRs controlled.
-Patient was not taking rate controlling meds prior to admission.
-Patient is not chronically anticoagulated due to Watchman in place. Watchman was placed due to recurrent radiation proctitis
-Will arrange follow up.
Original Note:
Today's Communication / Plan
-
Continue IV lasix
Restart Nifedipine
Continue aspirin and statin
Will arrange follow up.
Impression / Plan
-
CP: Dr. Marika Benson
Cardiology: Dr. Ish Nathan
Impression:
Presented 10/27/2023 with ongoing chest pain
Elevated Troponin, 54.3, possible NSTEMI vs Type II PR
Admitted with hypotension and shock, possibly septic and/or cardiogenic
PRISCILLA on CKD 3b
Hyponatremia
Chronic HFpEF
Permanent atrial fibrillation
Not chronically anticoagulated due to presence of watchman device
s/p Watchman due to recurrent radiation proctitis bleeding 02/01/21
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
cLBBB
Mild to moderate nonobstructive CAD by cath 07/07/22
HTN
Hx� prostate CA
Hx GBS after back surgery 2015
Hx DVT and B/L PE 2015
Lexiscan mibi 04/04/19: fixed inferolateral defect consistent with an infarct
Lexiscan mibi 06/07/20: No ischemia
Cardiac cath 07/07/22: Mild to moderate nonobstructive CAD, �50 to 60% proximal RCA, IFR negative at 0.95.
LHC 10/31/2023: Noncritical CAD, 40% proximal RCA stenosis. Stable compared to 06/2022. PCWP 30.
Echo 10/12/20: EF 60-65%, mild conc LVH, mild MS mean gradient 5 mmHg and mild MR, severe with peak/mean 69/44 mmHg and DEDRA 0.8 cm sq with mild aortic regurgitation
CARRILLO March 2021: well-seated watchman without leak or thrombus.
Echo 05/15/22: EF 50-55%, stage II diastolic dysfunction, mild to mod MR, TAVR well seated with peak/mean 21/12 mmHg and no aortic regurgitation
Echo 07/03/22: EF 55%, mild MS and mild t mod MR, s/p TAVR well seated with peak/mean 18/10 mmHg, no AR
Echo 10/29/23: EF 55 to 60% with abnormal paradoxical septal motion consistent with left bundle branch block, mild concentric LVH, mild MS with mean gradient 5 millimeters Hg. Moderate to severe MR, severely dilated left atrium. Status post TAVR
Arreaga Ramon 26. Peak/mean gradients are 15/9 mmHg. Trace AI. Mild to moderate TR with PAP 53 mmHg, moderately dilated right atrium
Plan:
-Presented with chest pain. Trop peaked at 54.3 and trended down thereafter. [facility] with stable coronary disease, but was noted to have moderate to severe MR with wedge of 30.
-Continue medical management. Restart nifedipine 30mg daily. Held on admission due to hypotension. Continue aspirin 81mg daily.
-Continue diuresis with IV lasix 40mg daily. Weight stable overnight at 182lbs. Creat improved at 1.0. Reassess in AM. Does note some SOB.
-Follow daily weights, I&Os.
-Patient with known permanent Afib and HRs controlled. Patient was not taking rate controlling meds prior to admission.
-Patient is not chronically anticoagulated due to Watchman in place. Watchman was placed due to recurrent radiation proctitis
-Continue Lipitor 10mg daily. On simvastatin 10 mg daily as OP.
-Will arrange follow up.
HPI 10/29/2023: Patient came to [facility] early Sunday morning with chest pain and is now admitted with shock and cardiology has been consulted for elevated Troponin. Patient says that chest pain started on Sunday when he was walking in his driveway,
chest pain was described as across his shoulders B/L and it was relieved with rest. Chest pain recurred later in the day with walking. No resting pain. Chest pain then felt more substernal on Sunday and then was more of a centrally located back pain
early Sunday morning. Pain was worse with deep breath, no real positional component. The pain started to become more intense and was happening at rest along with SOB and cough so he came to [facility] early Sunday morning. Initial Troponin was 0.177
and ECG showed chronic LBBB. CT was negative for PE, but there were small left and trace right pleural effusions. Patient was given Lasix 40 mg IV x1 in the ER. Patient was also started on empiric antibiotics and admitted with SIRS. Hypotension
worsened and Levophed was started, no additional Lasix was given. Lactic acid was elevated. Antibiotics were broadened. Troponin continued to rise was was up to 54 this morning. Heparin gtt started overnight. Patient denies chest pain, even with
deep breath, this AM. Hypotension has improved and Levophed stopped.
Progress Note - Home Care Specialist
Subjective
Date of Service: November 02, 2023
Still w/ some SOB. No chest pain.
Objective
Labs:
11/01/23 02:44
11/02/23 04:25
Labs
Hgb 12.4 g/dL (13.0-18.0) L 11/01/23 02:44
Hct 36.9 % (39.0-52.0) L 11/01/23 02:44
Plt Count 238 10^3/uL (130-400) D 11/01/23 02:44
PT 17.2 Sec (11.4-14.6) H 10/28/23 13:15
INR 1.43 10/28/23 13:15
APTT Cancelled 11/01/23 09:50
Sodium 142 mmol/L (135-145) 11/02/23 04:25
Potassium 4.3 mmol/L (3.5-5.1) 11/02/23 04:25
BUN 23 mg/dl (9-20) H 11/02/23 04:25
Creatinine 1.0 mg/dL (0.7-1.3) 11/02/23 04:25
Glucose 107 mg/dl (70-99) H 11/02/23 04:25
Vital Signs and I&O:
Vital Signs
Temp Pulse Resp BP Pulse Ox
97.6 F 73 18 153/84 94
11/02/23 06:52 11/02/23 05:00 11/02/23 06:52 11/02/23 04:35 11/02/23 06:52
Vital Signs
Temp Pulse Resp BP Pulse Ox
97.6 F 73 18 153/84 94
11/02/23 06:52 11/02/23 05:00 11/02/23 06:52 11/02/23 04:35 11/02/23 06:52
Intake & Output
10/31/23 11/01/23 11/02/23 11/03/23
06:59 06:59 06:59 06:59
Intake Total 1658 / 1658 495 / 495 740 / 740
Output Total 400 / 400 300 / 300
Balance 1258 / 1258 495 / 495 440 / 440
Physical Exam
Physical Exam
GEN: No distress, awake, alert, oriented x3
HEENT: supple, anicteric, mmm
LUNGS: CTA b/l, no wheezes/rales
CV: irregularly irregular, S1/S2, 2/6 syst murmur
EXT: No clubbing or cyanosis. Trace edema b/l LE
NEURO: Gross non-focal
SKIN: Warm, dry, no rash
--- NOTE | 2023-11-02 07:49 | W.PN.HOSP.TC ---
Today's Communication/Plan
-
d/c IF cleared by all consultants vs CARRILLO looking at mitral valve
Assessment / Plan
Assessment / Plan
Pt is an 83 year old male
NSTEMI--Acute chest pain with significant troponin elevation-- Chronic left bundle branch block noted. Remains chest pain-free. Patient on aspirin-- Trops tending down-- ECHO with normal EF-- cardiac cath with nonobstructive CAD, no new
interventions needed--CT chest negative for PE .
Acute on chronic CHF - pt did have symptom of dyspnea but asymptomatic without SOB-- patient has normal EF--Elevated BNP and small bilateral pleural effusions noted. Patient had issues with hypotension- diuretics were on hold [patient normally on
torsemide at home]-- Follow wt-- Chest CT also shows no evidence of infiltrates--Right and left heart catheter shows increased right and left-sided filling pressures--diuretics per renal
Mild to moderate mitral regurgitation- CARRILLO at somepoint to eval further per cards
Acute hypotension with shock physiology -unclear etiology- Patient needed brief vasopressors which are off now.
Leukocytosis -Remains Afebrile .? sec to infection vs reactive . Elevated procal noted but no clear foci of infection .cx data neg so far. UA negative. Chest CT without any infiltrates and consolidation--No GI or symptoms Favor holding abx and
follow--Stable off of abx.
PRISCILLA on CKD 3 -patient received IV contrast dye for CT chest and also might need cardiac catheterization. No obstructive symptoms. Follow I&O's. Appreciate nephrology input. Cr improved to 1.0 on 11/02/23
Gout� Continue allopurinol
Paroxysmal atrial fibrillation-currently in rate controlled [id number]-[id number] post Watchman device� On aspirin, no anticoagulation
Essential hypertension� holding nifedipine
Anticipated Discharge: Within 24 hours
Subjective/Interval History
-
Date of Service: November 02, 2023
pt feeling good--talking about discharge
Objective Data
-
Labs:
Laboratory Results
11/02/23
04:25
Sodium 142
Potassium 4.3
Chloride 105
Carbon Dioxide 23
BUN 23 H
Creatinine 1.0
Glucose 107 H
Calcium 9.7
Vital Signs:
max temp for 24 hours
11/01/23
22:44
Temp 98.2 F
Vital Signs
Temp Pulse Resp BP Pulse Ox
97.6 F 79 18 159/85 94
11/02/23 06:52 11/02/23 07:00 11/02/23 06:52 11/02/23 06:55 11/02/23 06:52
I&O
11/01/23 11/02/23 11/03/23
06:59 06:59 06:59
Intake Total 495 / 495 740 / 740
Output Total 300 / 300
Balance 495 / 495 440 / 440
Review of Systems
-
All other systems: Reviewed and negative
Physical Exam
-
General: Well Developed, Well Nourished and No Apparent Distress
HEENT: Normocephalic and Atraumatic; Negative Oxygen
Respiratory: Clear to Auscultation; Negative Wheezes, Rhonchi or Crackles
Cardiac: Regular Rhythm, S1/S2 and Murmur
GI: Soft, Nontender, Nondistended and Normal Bowel Sounds
Musculoskeletal: No Clubbing, No Cyanosis and No Edema
Neuro: Awake and Alert
Psych: Calm
[2023-11-02] MEDS: CYMBALTA DELAYED RELEASE 30 MG PO (07:55)
[2023-11-02] MEDS: ASPIR LOW (ENTERIC COATED) 81 MG PO (07:55)
[2023-11-02] MEDS: FLUSH (NSS) 2 FLUSH IV (07:56)
[2023-11-02] MEDS: TYLENOL 650 MG PO ×2 (07:56→20:22)
[2023-11-02] MEDS: NEURONTIN 400 MG PO ×2 (07:56→20:19)
[2023-11-02] MEDS: LASIX 40 MG IV (07:56)
[2023-11-02] MEDS: PLAVIX 75 MG PO (11:31)
--- NOTE | 2023-11-02 11:43 | CM ---
Chart reviewed. Patient is independent of ADLS, lives with his daughter in a [address] [facility], [address] [facility], has a SPC and RW at home but does not use. Referral sent to [facility]. Plan is for the patient to return [facility] with [facility].
--- NOTE | 2023-11-02 15:50 | PTCARENOTE ---
The patient's BP 177/95. Notified Nurys Oates. Procardia restarted. Stat dose given.
[2023-11-02] MEDS: PROCARDIA XL (EXTENDED RELEASE) 30 MG PO (16:01)
[2023-11-02] MEDS: FEOSOL 325 MG PO (16:01)
--- NOTE | 2023-11-02 16:30 | W.PN.NEPH.PH ---
Today's Communication / Plan
-
- torsemide
Assessment/Plan
-
Assessment:
Chest pain with trop elevation
Acute on chronic CHF
Hypotension (previously requiring pressor support)
PRISCILLA on [id number] cr 1.3-1.6-follows Dr Reina
gout
HTN
s/p TAVR for severe December 02, 2020
Atrial fibrillation, permanent
s/p Watchman due to recurrent radiation proctitis bleeding February 01, 2021 remains on aspirin
h/o prostate CA
h/o GBS after back surgery 2015
h/o DVT and B/L PE 2015
BPH on tamsulosin
Plan:
PRISCILLA -n the setting of contrast exposure + ATN (documented hypotension)
cr improved to 1.0
- KUS + bladder with 10mm nephrolith in lower pole of L kidney
s/p L and RHC on 10/31, non critical CAD, mod to severe MR with high PCWP of 30
okay to restart torsemide 10mg
follow cr post contrast, if stable we will likely s/o
BP on high end
d/w pt and family
-
-
Date of Service: November 02, 2023
CC / HPI / ROS
-
Chief Complaint:
PRISCILLA
History of Present Illness:
Cr now at 1.0 bciarb level
wt slightly down, on RA
Review of Systems:
no cp or sob at rest
Labs
-
Labs:
WBC 8.0 10^3/uL (4.8-10.8) 11/01/23 02:44
RBC 4.01 10^6/uL (4.70-6.10) L 11/01/23 02:44
Hgb 12.4 g/dL (13.0-18.0) L 11/01/23 02:44
Hct 36.9 % (39.0-52.0) L 11/01/23 02:44
Plt Count 238 10^3/uL (130-400) D 11/01/23 02:44
Sodium 142 mmol/L (135-145) 11/02/23 04:25
Potassium 4.3 mmol/L (3.5-5.1) 11/02/23 04:25
Chloride 105 mmol/L (98-107) 11/02/23 04:25
Carbon Dioxide 23 mmol/L (22-30) 11/02/23 04:25
BUN 23 mg/dl (9-20) H 11/02/23 04:25
Creatinine 1.0 mg/dL (0.7-1.3) 11/02/23 04:25
eGFR > 60.00 11/02/23 04:25
Glucose 107 mg/dl (70-99) H 11/02/23 04:25
Calcium 9.7 mg/dl (8.4-10.2) 11/02/23 04:25
Phosphorus 4.4 mg/dl (2.5-4.5) 10/28/23 07:23
Pax-X-Wiqrvngtkwv Pept 7570 pg/ml 10/30/23 04:53
Albumin 3.9 g/dl (3.5-5.0) 10/29/23 05:00
Physical Exam
-
Vital Signs:
Vital Signs
Temp Pulse Resp BP Pulse Ox
97.9 F 71 18 180/95 97
11/02/23 15:24 11/02/23 15:44 11/02/23 15:24 11/02/23 15:44 11/02/23 15:24
Cardiovascular:: Regular rate and rhythm
Respiratory:: Bilateral: CTA
Lung Excursion:: Normal
Abdomen:: Nontender and Soft
Bowel Sounds:: Normal
Extremity Edema:: None: Bilateral:
David Catheter: No
[2023-11-02] MEDS: ZYLOPRIM 300 MG PO (17:28)
--- NOTE | 2023-11-02 17:34 | PTCARENOTE ---
The patient has been oob and ambulatory all shift. Afib has been noted on the monitor. VSS. He states that he has been unable to use the urinal because he has had to have a bowel movement each time he had to urinate. He states that his BMs were
loose. I asked him to not flush the toilet the next time so I can accurately assess. He has had no complaint of pain or discomfort.
[2023-11-02] MEDS: VITAMIN D3 (cholecalciferol) 50 MCG PO (20:20)
[2023-11-02] MEDS: LIPITOR 10 MG PO (20:20)
[2023-11-03 04:21] VITALS: BP 124/76
[2023-11-03 04:30] VITALS: BMI 25.8
[2023-11-03 05:08] LABS: Hematocrit 35.5 % (39.0-52.0); Mean Corp Hgb Conc. 33.8 g/dL (33.0-37.0); Mean Corpuscular Hgb 30.7 pg (27.0-31.0); Mean Corpuscular Volume 90.8 fL (80.0-94.0); Mean Platelet Volume 9.5 fL (7.4-10.4); Platelet Count 277 10^3/uL (130-400); Red Blood Cell Count 3.91 10^6/uL (4.70-6.10); Red Cell Dist. Width 15.1 % (11.5-14.5); White Blood Cell Count 7.2 10^3/uL (4.8-10.8)
[2023-11-03 05:28] LABS: Blood Urea Nitrogen 27 mg/dl (9-20); Calcium 9.7 mg/dl (8.4-10.2); Carbon Dioxide 25 mmol/L (22-30); Chloride 104 mmol/L (98-107); Estimated Creatinine Clearance 52 ml/min; Glucose 113 mg/dl (70-99); Sodium 140 mmol/L (135-145); eGFR > 60.00
--- NOTE | 2023-11-03 07:19 | W.PN.CARDCBS ---
Addendum entered and electronically signed by Isabella Hatch DO 11/03/23 10:24:
I saw and examined the patient.
The Instructional Material Director's note was reviewed and I agree with the note.
Comment: Seen and examined this morning. Overall feels better with less shortness of breath. Lying supine on room air without symptoms. Ambulating in room with no symptoms of shortness of breath or chest pain. Denies dizziness.
GEN: No distress, awake, alert, oriented x3
HEENT: mmm
LUNGS: CTA b/l, no wheezes/rales
CV: irregularly irregular, S1/S2, 2/6 syst murmur
EXT: Right radial site intact without hematoma. No lower extremity edema
Plan:
-Presented with chest pain with NSTEMI, peak CTNI 54.3
-[facility] with stable coronary disease; no revascularization indicated
-Elevated troponin in setting of hypotension/shock with improved hemodynamics
-Continue medical management. Restart nifedipine 30mg daily. Held on admission due to hypotension.
-Continue aspirin 81mg daily.
-Will start Plavix 75 mg daily for 1 month
-Continue Lipitor 10 mg daily; transition from simvastatin. Goal LDL less than 70 mg/dL
Heart failure with preserved ejection fraction with moderate to severe mitral regurgitation.
-Wedge pressure at time of cardiac catheterization elevated at 30
-2D echocardiogram reviewed, mitral valve leaflets are thickened with significant leaflet and posterior annular calcification. Based on transthoracic echocardiogram, would not be a good MitraClip candidate
-Transition from IV Lasix to oral torsemide.
-Follow daily weights, I&Os.
-Permanent Afib and HRs controlled.
-Patient was not taking rate controlling meds prior to admission.
-Patient is not chronically anticoagulated due to Watchman in place. Watchman was placed due to recurrent radiation proctitis
-Stable from a cardiovascular standpoint for discharge
-Will arrange follow up.
Original Note:
Today's Communication / Plan
-
Transition back to PO torsemide
OK for discharge
Continue nifedipine, aspirin, plavix, lipitor
Follow up arranged
Impression / Plan
-
CP: Dr. Marika Benson
Cardiology: Dr. Ish Nathan
Impression:
Presented 10/27/2023 with ongoing chest pain
Elevated Troponin, 54.3, NSTEMI
Admitted with hypotension and shock, possibly septic and/or cardiogenic
PRISCILLA on CKD 3b
Hyponatremia
Acute on chronic HFpEF, PCWP 30
Permanent atrial fibrillation
Not chronically anticoagulated due to presence of watchman device
s/p Watchman due to recurrent radiation proctitis bleeding 02/01/21
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
cLBBB
Mild to moderate nonobstructive CAD by cath 07/07/22
HTN
Hx� prostate CA
Hx GBS after back surgery 2015
Hx DVT and B/L PE 2015
Lexiscan mibi 04/04/19: fixed inferolateral defect consistent with an infarct
Lexiscan mibi 06/07/20: No ischemia
Cardiac cath 07/07/22: Mild to moderate nonobstructive CAD, �50 to 60% proximal RCA, IFR negative at 0.95.
LHC 10/31/2023: Noncritical CAD, 40% proximal RCA stenosis. Stable compared to 06/2022. PCWP 30.
Echo 10/12/20: EF 60-65%, mild conc LVH, mild MS mean gradient 5 mmHg and mild MR, severe with peak/mean 69/44 mmHg and DEDRA 0.8 cm sq with mild aortic regurgitation
CARRILLO March 2021: well-seated watchman without leak or thrombus.
Echo 05/15/22: EF 50-55%, stage II diastolic dysfunction, mild to mod MR, TAVR well seated with peak/mean 21/12 mmHg and no aortic regurgitation
Echo 07/03/22: EF 55%, mild MS and mild t mod MR, s/p TAVR well seated with peak/mean 18/10 mmHg, no AR
Echo 10/29/23: EF 55 to 60% with abnormal paradoxical septal motion consistent with left bundle branch block, mild concentric LVH, mild MS with mean gradient 5 millimeters Hg. Moderate to severe MR, severely dilated left atrium. Status post TAVR
Arreaga Ramon 26. Peak/mean gradients are 15/9 mmHg. Trace AI. Mild to moderate TR with PAP 53 mmHg, moderately dilated right atrium
Plan:
-Presented with chest pain. Trop peaked at 54.3 and trended down thereafter. [facility] with stable coronary disease, but was noted to have moderate to severe MR with wedge of 30.
-Continue medical management. Nifedipine 30mg daily restarted 11/01. Held on admission due to hypotension. BP is improved this AM.
-Continue aspirin 81mg daily. Started on plavix 75 mg daily which he will continue for 1 month.
-Diuresed with IV lasix 40mg daily. Weight down to 179 lbs, down 3lbs overnight. Creat stable at 1.1. Ok to restart PO torsemide at discharge.
-Patient with known permanent Afib and HRs controlled. Patient was not taking rate controlling meds prior to admission.
-Patient is not chronically anticoagulated due to Watchman in place. Watchman was placed due to recurrent radiation proctitis
-Continue Lipitor 10mg daily.
-Follow up arranged.
HPI 10/29/2023: Patient came to [facility] early Sunday morning with chest pain and is now admitted with shock and cardiology has been consulted for elevated Troponin. Patient says that chest pain started on Sunday when he was walking in his driveway,
chest pain was described as across his shoulders B/L and it was relieved with rest. Chest pain recurred later in the day with walking. No resting pain. Chest pain then felt more substernal on Sunday and then was more of a centrally located back pain
early Sunday morning. Pain was worse with deep breath, no real positional component. The pain started to become more intense and was happening at rest along with SOB and cough so he came to [facility] early Sunday morning. Initial Troponin was 0.177
and ECG showed chronic LBBB. CT was negative for PE, but there were small left and trace right pleural effusions. Patient was given Lasix 40 mg IV x1 in the ER. Patient was also started on empiric antibiotics and admitted with SIRS. Hypotension
worsened and Levophed was started, no additional Lasix was given. Lactic acid was elevated. Antibiotics were broadened. Troponin continued to rise was was up to 54 this morning. Heparin gtt started overnight. Patient denies chest pain, even with
deep breath, this AM. Hypotension has improved and Levophed stopped.
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
Subjective
Date of Service: November 03, 2023
Feeling well. Breathing improved.
Objective
Labs:
11/03/23 04:28
11/03/23 04:28
Labs
Hgb 12.0 g/dL (13.0-18.0) L 11/03/23 04:28
Hct 35.5 % (39.0-52.0) L 11/03/23 04:28
Plt Count 277 10^3/uL (130-400) 11/03/23 04:28
PT 17.2 Sec (11.4-14.6) H 10/28/23 13:15
INR 1.43 10/28/23 13:15
APTT Cancelled 11/01/23 09:50
Sodium 140 mmol/L (135-145) 11/03/23 04:28
Potassium 4.0 mmol/L (3.5-5.1) 11/03/23 04:28
BUN 27 mg/dl (9-20) H 11/03/23 04:28
Creatinine 1.1 mg/dL (0.7-1.3) 11/03/23 04:28
Glucose 113 mg/dl (70-99) H 11/03/23 04:28
Vital Signs and I&O:
Vital Signs
Temp Pulse Resp BP Pulse Ox
97.8 F 65 18 124/76 96
11/03/23 04:19 11/03/23 05:00 11/03/23 04:19 11/03/23 04:21 11/03/23 04:19
Vital Signs
Temp Pulse Resp BP Pulse Ox
97.8 F 65 18 124/76 96
11/03/23 04:19 11/03/23 05:00 11/03/23 04:19 11/03/23 04:21 11/03/23 04:19
Intake & Output
11/01/23 11/02/23 11/03/23 11/04/23
06:59 06:59 06:59 06:59
Intake Total 495 / 495 740 / 740
Output Total 300 / 300 375 / 375
Balance 495 / 495 440 / 440 -375 / -375
Physical Exam
Physical Exam
GEN: No distress, awake, alert, oriented x3
HEENT: supple, anicteric, mmm
LUNGS: CTA b/l, no wheezes/rales
CV: irregularly irregular, S1/S2, 2/6 syst murmur
EXT: No clubbing, cyanosis, or edema
NEURO: Gross non-focal
SKIN: Warm, dry, no rash
[2023-11-03 07:24] VITALS: BP 144/76
[2023-11-03] MEDS: FLUSH (NSS) 2 FLUSH IV (07:56)
[2023-11-03] MEDS: CYMBALTA DELAYED RELEASE 30 MG PO (07:57)
[2023-11-03] MEDS: NEURONTIN 400 MG PO (07:57)
[2023-11-03] MEDS: TYLENOL 650 MG PO (07:57)
[2023-11-03] MEDS: PLAVIX 75 MG PO (07:57)
[2023-11-03] MEDS: ASPIR LOW (ENTERIC COATED) 81 MG PO (07:57)
[2023-11-03] MEDS: PROCARDIA XL (EXTENDED RELEASE) 30 MG PO (07:57)
[2023-11-03] MEDS: LASIX 40 MG IV (07:57)
[2023-11-03 11:06] VITALS: BP 111/59
--- NOTE | 2023-11-03 12:36 | W.PN.HOSP.TC ---
Today's Communication/Plan
-
DC
Assessment / Plan
Assessment / Plan
Pt is an 83 year old male
NSTEMI--Acute chest pain with significant troponin elevation-- Chronic left bundle branch block noted. Remains chest pain-free. Patient on aspirin-- Trops tending down-- ECHO with normal EF-- cardiac cath with nonobstructive CAD, no new
interventions needed--CT chest negative for PE .
Acute on chronic CHF - pt did have symptom of dyspnea but asymptomatic without SOB-- patient has normal EF--Elevated BNP and small bilateral pleural effusions noted. Patient had issues with hypotension- diuretics were on hold [patient normally on
torsemide at home]-- Follow wt-- Chest CT also shows no evidence of infiltrates--Right and left heart catheter shows increased right and left-sided filling pressures--diuretics per renal. Compensated.
Mild to moderate mitral regurgitation- CARRILLO at somepoint to eval further per cards
Acute hypotension with shock physiology -unclear etiology- Patient needed brief vasopressors which are off now.
Leukocytosis -Remains Afebrile .? sec to infection vs reactive . Elevated procal noted but no clear foci of infection .cx data neg so far. UA negative. Chest CT without any infiltrates and consolidation--No GI or symptoms Favor holding abx and
follow--Stable off of abx.
PRISCILLA on CKD 3 -patient received IV contrast dye for CT chest and also might need cardiac catheterization. No obstructive symptoms. Follow I&O's. Appreciate nephrology input. Cr improved .
Gout� Continue allopurinol
Paroxysmal atrial fibrillation-currently in rate controlled [id number] post Watchman device� On aspirin, no anticoagulation
Essential hypertension� holding nifedipine
DW Cards today - stable for dc from their Standpoint.
Medically stable for discharge.
Total time of discharge 32 minutes
Anticipated Discharge: Today
Subjective/Interval History
-
Date of Service: November 03, 2023
Patient without chest pain or shortness of breath.
Eating well.
No dizziness.
Objective Data
-
Labs:
Laboratory Results
11/03/23
04:28
WBC 7.2
Hgb 12.0 L
Hct 35.5 L
Plt Count 277
Sodium 140
Potassium 4.0
Chloride 104
Carbon Dioxide 25
BUN 27 H
Creatinine 1.1
Glucose 113 H
Calcium 9.7
Vital Signs:
Vital Signs
Temp Pulse Resp BP Pulse Ox
97.9 F 78 18 144/76 96
11/03/23 11:11 11/03/23 07:24 11/03/23 11:11 11/03/23 07:24 11/03/23 11:11
I&O
11/02/23 11/03/23 11/04/23
06:59 06:59 06:59
Intake Total 740 / 740
Output Total 300 / 300 375 / 375
Balance 440 / 440 -375 / -375
Review of Systems
-
Constitutional: Denies Fever or Chills
EENT: Denies Sore Throat
Respiratory: Denies Cough
Abdomen/GI: Denies Abdominal Pain, Nausea, Vomiting or Diarrhea
Physical Exam
-
General: No Apparent Distress
HEENT: Moist Mucous Membranes
Respiratory: Clear to Auscultation and Non Labored Respirations; Negative Accessory Resp Muscle Use
Cardiac: S1/S2 and Irregular Rhythm; Negative Tachycardic
GI: Soft
Neuro: AO x 3
Data Reviewed
-
Labs: Labs Reviewed by me
--- NOTE | 2023-11-03 12:43 | W.DS.TRANS ---
DC Summary - Rn Resource Nurse
-
Discharge Instructions:
Discharge Diagnosis/Procedures NSTEMI ; Acute CHFpEF; Cardiac cath
Diet 2 Gram Sodium,Low Cholesterol
Activity As tolerated
Driving Restrictions No driving for 24 hours
Other Services VN
Specialty Instructions Weigh Daily
Instructions:
Stand-Alone Forms: DC Instructions- Cath/EP Lab
Changes to Home Medications: Yes
Discharge Medications:
DC Medications w/original date entered in [employer]
acetaminophen 650 mg tablet,extended release (Tylenol Arthritis Pain) 650 mg PO Q8HPRN PRN mild pain 01/21/21
tamsulosin 0.4 mg capsule 0.4 mg PO Q48H Urinary issue 03/23/21
aspirin 81 mg tablet,delayed release 81 mg PO DAILY Blood Clot Prevention/Tx 11/03/22
cholecalciferol (vitamin D3) 50 mcg (2,000 unit) capsule 50 mcg PO HS Supplement 11/03/22
duloxetine 30 mg capsule,delayed release 30 mg PO DAILY Mental Health/Anxiety 11/03/22
torsemide 10 mg tablet 10 mg PO DAILY Fluid retention/Swelling 11/03/22
gabapentin 400 mg capsule 400 mg PO BID Pain 11/12/22
nifedipine 30 mg tablet,extended release 30 mg PO DAILY Blood pressure 30 days #30 tabs 11/24/22
allopurinol 300 mg tablet 300 mg PO QPM Gout 07/08/23
ferrous sulfate 325 mg (65 mg iron) tablet 325 mg PO Q48H@1700 Supplement 07/08/23
atorvastatin 10 mg tablet 10 mg PO HS #30 tabs 11/03/23
clopidogrel 75 mg tablet 75 mg PO DAILY #30 tabs 11/03/23
Home Medication Changes
New medication-Plavix
Change in medication -changed to Lipitor from Zocor
Pending Results: No
--- NOTE | 2023-11-03 14:07 | W.PN.UPDATE ---
Update Note
Progress Note Update
- Cr and Na remained stable
- We will sign off
- Plan for f/u in 6 weeks with Andrea Reina
== END 2023-11-03 14:04 | disposition home health service (06) | DRG 280 ==
LOC: IVU 09:49
PROVIDERS: Internal Medicine; Internal Medicine Cardiovascular Disease; Internal Medicine Interventional Cardiology; Nurse Practitioner Adult Health; Nurse Practitioner Gerontology; Physician Assistant Medical; ADMITTING PHYSICIAN Internal Medicine; ATTENDING PHYSICIAN Internal Medicine; CONSULT PHYSICIAN Student in an Organized Health Care Education/Training Program; EMERGENCY PHYSICIAN Emergency Medicine; FAMILY PHYSICIAN Family Medicine; OTHER PHYSICIAN Internal Medicine Cardiovascular Disease
PROC: 5A09357 Assistance with Respiratory Ventilation, Less than 24 Consecutive Hours, Continuous Positive Airway Pressure (ICD-10-PCS; 2023-10-28)
PROC: B2111ZZ Fluoroscopy of Multiple Coronary Arteries using Low Osmolar Contrast (ICD-10-PCS; 2023-11-01)
PROC: 4A023N6 Measurement of Cardiac Sampling and Pressure, Right Heart, Percutaneous Approach (ICD-10-PCS; 2023-11-01)
DX: I21.4 Non-ST elevation (NSTEMI) myocardial infarction (principal); I50.33 Acute on chronic diastolic (congestive) heart failure; N17.0 Acute kidney failure with tubular necrosis; I13.0 Hypertensive heart and chronic kidney disease with heart failure and stage 1 through stage 4 chronic kidney disease, or unspecified chronic kidney disease; I48.21 Permanent atrial fibrillation; E87.1 Hypo-osmolality and hyponatremia; R57.9 Shock, unspecified; J91.8 Pleural effusion in other conditions classified elsewhere; E87.20 Acidosis, unspecified; E11.22 Type 2 diabetes mellitus with diabetic chronic kidney disease; E11.40 Type 2 diabetes mellitus with diabetic neuropathy, unspecified; Z95.2 Presence of prosthetic heart valve; J44.9 Chronic obstructive pulmonary disease, unspecified; N18.32 Chronic kidney disease, stage 3b; I08.0 Rheumatic disorders of both mitral and aortic valves; I44.7 Left bundle-branch block, unspecified; I25.10 Atherosclerotic heart disease of native coronary artery without angina pectoris; I25.2 Old myocardial infarction; G47.33 Obstructive sleep apnea (adult) (pediatric); E78.00 Pure hypercholesterolemia, unspecified; K21.9 Gastro-esophageal reflux disease without esophagitis; M10.9 Gout, unspecified; D72.829 Elevated white blood cell count, unspecified; R09.02 Hypoxemia; R06.89 Other abnormalities of breathing; T50.916A Underdosing of multiple unspecified drugs, medicaments and biological substances, initial encounter; Z91.128 Patient's intentional underdosing of medication regimen for other reason; Z79.82 Long term (current) use of aspirin; Z79.899 Other long term (current) drug therapy; Z87.891 Personal history of nicotine dependence; Z95.818 Presence of other cardiac implants and grafts; Z85.46 Personal history of malignant neoplasm of prostate; Z87.19 Personal history of other diseases of the digestive system; Z86.711 Personal history of pulmonary embolism; Z86.718 Personal history of other venous thrombosis and embolism; Z88.8 Allergy status to other drugs, medicaments and biological substances
CPT/HCPCS: 71045; 71275; 76770; 80048; 80053; 80202; 81003; 82805; 82962; 83605; 83735; 83880; 84100; 84145; 84484; 85025; 85027; 85379; 85610; 85730; 86738; 87040; 87070; 87449; 87811; 87899; 93005; 93306; 93456; 93970; 94660; 94760; 96374; 96375; 97116; 97162; 97166; 97530; 97535; 99285; C1894; Q9967